=== PATIENT | female | born 1975 | race Caucasian/White ===

== ENCOUNTER → 2020-02-12 12:11 | Outpatient (CLI) | payer BC, SELFPAY ==
[2018-04-02 13:46] VITALS: BMI 39.6
[2020-02-12 15:13] LABS: Hematocrit 38.9 % (37-47); Hemoglobin 12.3 g/dL (12.0-15.0); Mean Corp Hgb Conc 31.6 g/dL (32-36); Mean Corpuscular Hgb 28.7 pg (27.0-32.0); Mean Corpuscular Volume 90.9 fL (81-99); Platelet Count 321 K/mm3 (150-450); RBC Distribution Width CV 12.6 % (11.6-14.6); RBC Distribution Width SD 41.7 fl (35.1-43.9); Red Blood Count 4.28 M/mm3 (4.2-5.4); White Blood Count 9.6 K/mm3 (4.4-11.0)
[2020-02-12 15:41] LABS: ALB/GLOB Ratio 0.9 RATIO (0.9-2.4); AST(SGOT) 19 U/L (15-37); Alanine Aminotransfer ALT/SGPT 32 U/L (13-56); Albumin, Serum 3.3 g/dL (3.2-5.0); Alkaline Phosphatase 62 U/L (45-117); Anion Gap 7 (5-15); BUN 19 mg/dL (7-18); BUN/Creat Ratio 18.8 RATIO (10-20); Calcium,Total 8.5 mg/dL (8.5-10.1); Chloride 104 mmol/L (98-107); Creatinine, Serum 1.01 mg/dL (0.55-1.02); EST Glomerular Filtration Rate 63 mL/min (>60); Est Glom Filt Rate - Afr Amer 76 mL/min (>60); Globulin 3.8 g/dL (2.2-4.2); Glucose 80 mg/dL (74-106); Potassium 4.1 mmol/L (3.5-5.1); Protein, Total 7.1 g/dL (6.4-8.2); Sodium Level 135 mmol/L (136-145)
== END ==
PROVIDERS: Referring Provider Family Medicine; Visit Provider Family Medicine
DX: Z51.81 Encounter for therapeutic drug level monitoring (principal); B18.2 Chronic viral hepatitis C
CPT/HCPCS: 36415; 80053; 85027

== ENCOUNTER → 2020-03-04 12:11 | Outpatient (CLI) | payer BC, SELFPAY ==
[2018-04-02 13:46] VITALS: BMI 39.6
--- NOTE | 2020-03-04 12:13 | BI_ITS ---
MAMMOGRAPHY - BILATERAL SCREENING REASON FOR EXAM: Female, 44 years old. Routine annual screening examination. PERTINENT HISTORY: Mother with breast cancer. Grandmother with breast cancer. TECHNIQUE: Digital bilateral breast saira (3D mammographic acquisition) in the CC and MLO projections. 2-D mediolateral oblique (MLO) and craniocaudad (CC) views of both breasts were obtained. CAD: Full Field Digital Mammography with Computer Added Detection was performed. COMPARISON: Comparison is made with prior examination of 09/11/2017. FINDINGS: Breast Composition: There are scattered areas of fibroglandular density. There are no dominant masses or suspicious calcifications. No other significant abnormalities are identified. There has been no significant change since the prior study. BI/SCRN MAMM (CAD)W/SAIRA BILAT IMPRESSION: Stable bilateral screening mammogram. Yearly follow-up mammogram recommended. (A) ASSESSMENT CATEGORY: BIRADS Category 1: Negative. A letter regarding these results will be sent to the patient by the facility within 30 days. Approximately 10% of breast cancers are not detected by mammography. A normal mammogram should not delay biopsy of a clinically suspicious abnormality. [id number] Electronically Signed: Donnie Todd MD at 13:16 EST , Service support ,
== END ==
LOC: OPBI 12:12
PROVIDERS: PCP Family Medicine; Referring Provider Obstetrics & Gynecology Gynecology; Visit Provider Obstetrics & Gynecology Gynecology
DX: Z12.31 Encounter for screening mammogram for malignant neoplasm of breast (principal)
CPT/HCPCS: 77063; 77067

== ENCOUNTER → 2023-02-02 | Outpatient (CLI) | payer OTHER, SELFPAY ==
--- NOTE | 2023-02-02 13:11 | BI_ITS ---
MAMMOGRAPHY - BILATERAL SCREENING 3-D TOMOSYNTHESIS REASON FOR EXAM: Female, 47 years old. Routine annual screening mammogram. PERTINENT HISTORY: Mother and grandmother with breast cancer, ages not identified. TECHNIQUE: 2-D mammograms and 3-D Tomosynthesis of the breast (s) were performed. CAD was performed. COMPARISON: March 04, 2020. FINDINGS: The breast composition is almost entirely fat. Stable benign calcifications and normal lymph nodes. No dominant masses, suspicious microcalcifications, asymmetries, skin thickening or nipple retraction. BI/SCRN MAMM (CAD)W/SAIRA BILAT IMPRESSION: No mammographic signs of malignancy. Routine yearly mammograms recommended. ASSESSMENT CATEGORY: BIRADS Category 2: Benign. A letter regarding these results will be sent to the patient by the facility within 30 days. FOLLOW UP RECOMMENDATION: Yearly follow up mammogram recommended. (A) Approximately 10% of breast cancers are not detected by mammography. A normal mammogram should not delay biopsy of a clinically suspicious abnormality. Electronically Signed: Jesse Alejandre MD at 15:26 EST ,
--- OUTSIDE RECORDS SUMMARY | 2023-02-02 13:38 | XMS RPT_ITS | CCD ---
Author Name Unknown Address [id number] [place] [address] Organization [facility] Care Team Providers Care Punch Press Setter Name Role Phone Unavailable Primary Care Provider UnavailJames Hall MD Unavailable PROVIDER, UNKNOWN Admitting Unavailable PROVIDER, UNKNOWN Attending Unavailable PROVIDER, UNKNOWN Admitting Unavailable PROVIDER, UNKNOWN Attending Unavailable PROVIDER, UNKNOWN Admitting Unavailable PROVIDER, UNKNOWN Attending Unavailable JAMES GALLEGOS Referring Unavailable PROVIDER, UNKNOWN Admitting Unavailable PROVIDER, UNKNOWN Attending Unavailable JAMES GALLEGOS Referring Unavailable PROVIDER, UNKNOWN Admitting Unavailable PROVIDER, UNKNOWN Attending Unavailable JAMES GALLEGOS Referring Unavailable PROVIDER, UNKNOWN Attending Unavailable JAMES GALLEGOS Referring Unavailable PROVIDER, UNKNOWN Admitting Unavailable PROVIDER, UNKNOWN Admitting Unavailable PROVIDER, UNKNOWN Attending Unavailable KENYA THORNE Referring Unavailable Kyung, MsJoss Maria G Edyta Attending Unav ailable Pending, Provider Primary Care Unavailable Unavailable Primary Care Provider UnavailWILY Mcconnell Attending Unavailable VERO DICKEY Attending Unavailable DUTTA, SCOT Referring Unavailable Lizet SAENZ MD, Frank A Primary Care Provider Eleni sofi Decker ASSURANCE SENIOR MANAGER INSURANCE, Frida Unavailable Helen Lyon Unavailable CEBUL III, WILLIAM A Primary Care Unavailable DUTTA, SCOT D Referring Unavailable CEBUL III, WILLIAM A Primary Care Unavailable DUTTA, SCOT D Referring Unavailable CEBUL III, WILLIAM A Primary Care Unavailable DUTTA, SCOT D Referring Unavailable CEBUL III, WILLIAM A Primary Care Unavailable DUTTA, SCOT D Referring Unavailable CEBUL III, WILLIAM A Primary Care Unavailable DUTTA, SCOT D Referring Unavailable Allergies Allergy Classification Reported Allergen(s) Allergy Type Date of Onset Reaction(s) Facility (20 sources) Amoxicillin; Translations: [AMOXICILLIN] Drug Allergy 1 Other, Other: See Comments [facility] (19 sources) Ciprofloxacin; Translations: [CIPROFLOXACIN HYDROCHLORIDE] Drug Allergy 8 Hives, Swelling [facility] Work Phone: (20 sources) cyclobenzaprine; Translations: [CYCLOBENZAPRINE] Drug Allergy 6 Other, Unknown [facility] (3 sources) buPROPion Drug Allergy 9 [facility] (3 sources) venlafaxine Drug Allergy 9 [facility] (1 source) Ciprofloxacin Drug Allergy [facility] (1 source) cyclobenzaprine Drug Allergy [facility] (1 source) Ciprofloxacin; Translations: [CIPROFLOXACIN] Drug Allergy 5 [facility] Other [employer] [facility] Medications Current Medications Medication Drug Class(es) Dates Sig (Normalized) Sig (Original) clindamycin 300 mg oral capsule (1 source) Lincosamide Antibacterial Start: 11-04-2022 Clindamycin 300 mg oral capsule clonazePAM 2 mg oral tablet (13 sources) Benzodiazepine Start: 04-01-2022 take 1 tablet by mouth in the morning clonazePAM (KlonoPIN) 2 MG tablet Take 2 mg by mouth in the morning and 2 mg in the evening. 0 04/01/2022 Active oxyCODONE hydrochloride 5 mg oral tablet (5 sources) Opioid Agonist Start: 05-05-2022 End: 05-15-2022 take 1 tablet by mouth every twelve hours as needed for pain oxyCODONE (Roxicodone) 5 MG immediate release tablet Take 1 Tablet by mouth every 12 hours as needed for Pain for up to 10 days. 0 05/05/2022 Active Completed/Discontinued Medications Medication Drug Class(es) Dates Sig (Normalized) Sig (Original) amphetamine aspartate 5 mg / amphetamine sulfate 5 mg / dextroamphetamine saccharate 5 mg / dextroamphetamine sulfate 5 mg oral tablet (13 sources) Central Nervous System Stimulant Start: 03-17-2022 End: 06-08-2022 amphetamine-dextr oamphetamine (Adderall) 20 MG tablet Ethinyl Estradiol / Ferrous fumarate / Norethindrone (5 sources) Estrogen Start: 10-21-2015 LO LOESTRIN FE 1 mg-10 mcg (24)/10 mcg (2) tab ibuprofen 800 mg oral tablet (18 sources) Nonsteroidal Anti-inflammatory Drug Start: 03-20-2022 End: 06-08-2022 take 1 tablet by mouth three times daily ibuprofen 800 MG tablet Take 800 mg by mouth 3 times daily. 0 03/20/2022 06/08/2022 Discontinued (Therapy completed) Problems Active Problems Problem Classification Problem Date Documented Date Episodic/Chronic Anxiety disorders (16 sources) Anxiety; Translations: [Anxiety disorder, unspecified] Onset: 06-05-2018 05-24-2022 Chronic Disorders of lipid metabolism (3 sources) Hyperlipidemia, unspecified; Translations: [Hyperlipidemia, unspecified] Onset: 05-24-2022 Chronic Genitourinary symptoms and ill-defined conditions (3 sources) Retention of urine; Translations: [Retention of urine, unspecified] Onset: 05-24-2022 05-24-2022 Episodic Mood disorders (17 sources) Depressive disorder; Translations: [Depression] Onset: 06-05-2018 05-24-2022 Chronic Other connective tissue disease (1 source) Abnormal posture; Translations: [Abnormal posture] Episodic Other connective tissue disease (6 sources) History of cervical spine fusion; Translations: [Arthrodesis status] Onset: 08-01-2022 Episodic Other connective tissue disease (2 sources) Bilateral hand weakness; Translations: [Other symptoms and signs involving the musculoskeletal system] Episodic Other nervous system disorders (8 sources) Cervical myelopathy; Translations: [Disease of spinal cord, unspecified] Onset: 05-05-2022 Chronic Other nervous system disorders (3 sources) Disease of spinal cord, unspecified; Translations: [Disease of spinal cord, unspecified] Onset: 05-05-2022 Chronic Other nervous system disorders (2 sources) Numbness of hand; Translations: [Anesthesia of skin] Episodic Other nutritional; endocrine; and metabolic disorders (5 sources) Body mass index 30+ - obesity; Translations: [Body mass index (BMI) 39.0-39.9, adult] Onset: 05-24-2022 Chronic Other upper respiratory disease (1 source) Pain in throat; Translations: [Pain in throat] Onset: 11-04-2022 Episodic Other upper respiratory infections (2 sources) Streptococcal pharyngitis; Translations: [Streptococcal pharyngitis] Onset: 11-04-2022 Episodic Residual codes; unclassified (13 sources) Insomnia; Translations: [Insomnia, unspecified] Onset: 02-02-2014 05-24-2022 Episodic Spondylosis; intervertebral disc disorders; other back problems (19 sources) Cervical spondylosis; Translations: [Other spondylosis with myelopathy, cervical region] Onset: 07-09-2007 07-09-2007 Chronic Unclassified (1 source) Physical Therapy Onset: 08-16-2022 Past or Other Problems Problem Classification Problem Date Documented Date Episodic/Chronic Administrative/social admission (7 sources) Other reduced mobility; Translations: [Other specified conditions influencing health status] Onset: 08-01-2022 Episodic Calculus of urinary tract (8 sources) Kidney stone; Translations: [Calculus of kidney] Onset: 02-02-2014 05-24-2022 Episodic Hepatitis (8 sources) Viral hepatitis C; Translations: [Unspecified viral hepatitis C without hepatic coma] Onset: 02-18-2014 05-24-2022 Episodic Malaise and fatigue (7 sources) Asthenia; Translations: [Weakness] Onset: 08-01-2022 Episodic Other connective tissue disease (1 source) Other symptoms and signs involving the musculoskeletal system; Translations: [Weakness of both hands] Onset: 08-16-2022 Episodic Other connective tissue disease (1 source) Arthrodesis status; Translations: [S/P cervical spinal fusion] Onset: 08-01-2022 Episodic Other nervous system disorders (1 source) Anesthesia of skin; Translations: [Bilateral hand numbness] Onset: 08-16-2022 Episodic Spondylosis; intervertebral disc disorders; other back problems (20 sources) Cervical radiculitis; Translations: [Radiculopathy, cervical region] Onset: 04-10-2016 Episodic Results Test Name Value Interpretation Reference Range Facil it Vital Signs Date Time Vital Sign Value Performing Clinician Facility 11-04-2022 15:21-0400 Body temperature 97.7 [degF] Frida Decker ASSURANCE SENIOR MANAGER INSURANCE [facility] 11-04-2022 15:21-0400 Body weight 80.3 kg Frida Pollack ASSURANCE SENIOR MANAGER INSURANCE [facility] 11-04-2022 15:21-0400 Diastolic blood pressure 85 mm[Hg] Frida Pollack ASSURANCE SENIOR MANAGER INSURANCE [facility] 11-04-2022 15:21-0400 Heart rate 91 /min Frida Pollack ASSURANCE SENIOR MANAGER INSURANCE [facility] 11-04-2022 15:21-0400 Respiratory rate 18 /min Frida Pollack ASSURANCE SENIOR MANAGER INSURANCE [facility] 11-04-2022 15:21-0400 SaO2% (BldA) [Mass fraction] 98 % Frida Pollack ASSURANCE SENIOR MANAGER INSURANCE [facility] 11-04-2022 15:21-0400 Systolic blood pressure 124 mm[Hg] Frida Pollack ASSURANCE SENIOR MANAGER INSURANCE [facility] 06-08-2022 08:02-0400 Body height 147.3 cm Vero Rojasl DO Work Phone: [facility] 06-08-2022 08:02-0400 Body mass index (BMI) [Ratio] 39.29 kg/m2 Vero Dickey DO Work Phone: [facility] 06-08-2022 08:02-0400 Body weight 85.28 kg Vero Dickey DO Work Phone: [facility] 05-30-2022 09:04-0400 Body height 147.3 cm Wily Elizabeth MD Work Phone: [facility] [employer] 05-30-2022 09:04-0400 Body mass index (BMI) [Ratio] 38.67 kg/m2 Wily Elizabeth MD Work Phone: [facility] 05-30-2022 09:04-0400 Body weight 83.92 kg Wily Elizabeth MD Work Phone: [facility] 05-30-2022 09:04-0400 Diastolic blood pressure 80 mm[Hg] Wily Elizabeth MD Work Phone: [facility] 05-30-2022 09:04-0400 Heart rate 105 /min Wily Elizabeth MD Work Phone: [facility] 05-30-2022 09:04-0400 Systolic blood pressure 111 mm[Hg] Wily Elizabeth MD Work Phone: [facility] 05-05-2022 09:35-0400 Body temperature 98.1 [degF] [facility] 05-05-2022 09:35-0400 Diastolic blood pressure 78 mm[Hg] [facility] 05-05-2022 09:35-0400 Heart rate 90 /min James [facility] 05-05-2022 09:35-0400 SaO2% (BldA) [Mass fraction] 99 % James [facility]legos MD [facility] 05-05-2022 09:35-0400 Systolic blood pressure 126 mm[Hg] James [facility]leg[facility] 04-07-2022 08:11-0500 Body height 147.3 cm James Gallegos MD [facility] 04-07-2022 08:11-0500 Body mass index (BMI) [Ratio] 39.71 kg/m2 James Gallegos MD Work Phone: [facility] [employer] 04-07-2022 08:11-0500 Body temperature 97.81 [degF] James [facility]leg[facility] 04-07-2022 08:11-0500 Body weight 86.18 kg James Gallegos MD [facility] 04-07-2022 08:11-0500 Diastolic blood pressure 76 mm[Hg] James [facility]legos MD [facility] 04-07-2022 08:11-0500 Heart rate 88 /min James Gallegos MD [facility] 04-07-2022 08:11-0500 SaO2% (BldA) [Mass fraction] 97 % James Gallegos MD [facility] 04-07-2022 08:11-0500 Systolic blood pressure 119 mm[Hg] James Gallegos MD Work Phone: [facility] Encounters Encounter Date Encounter Type Care Provider Facility Start: 11-04-2022 Frida grijalva ASSURANCE SENIOR MANAGER INSURANCE [facility] Start: 08-18-2022 End: 08-18-2022 ambulatory WILL[facility] CEBUL [facility] Start: 08-16-2022 End: 08-16-2022 ambulatory WILLIAM A CEBUL III [facility] Start: 08-16-2022 End: 08-16-2022 ambulatory Dick Yuliana SUPERVISOR GROVE Work Phone: [facility] Procedures Date Procedure Procedure Detail Performing Clinician Start: 04-24-2022 Mri spinal canal cer vical w/o contrast matrl James Gallegos MD Work Phone: Start: 03-04-2020 Mammography Kyleigh collier PT Work Phone: Plan of Treatment Date Care Activity Detail Author Start: 08-29-2027 DTaP/Tdap/Td Vaccines (2 - Td or Tdap) DTaP/Tdap/Td Vaccines (2 - Td or Tdap) [facility] Start: 08-29-2027 Tetanus vaccination Tetanus (Td or Tdap) Booster [facility] Start: 08-29-2027 Urine microalbumin profile DTAP,TDAP,TD (2 - Td or Tdap) [facility] Start: 2024 Shingles (RZV) Vaccine (1 of 2) Shingles (RZV) Vaccine (1 of 2) [facility] Start: 2024 Zoster Vaccines (1 of 2) Zoster Vaccines (1 of 2) [facility] Start: 05-06-2023 DIABETES SCREEN DIABETES SCREEN [facility] Start: 10-06-2022 Influenza vaccination [facility] Start: 08-31-2022 End: 08-31-2022 ACDF, ANTERIOR/POSTERIOR CERVICAL FLIP ACDF, ANTERIOR/POSTERIOR CERVICAL FLIP Routine scheduled Cervical spondylosis with myelopathy Cervical radiculitis Cervical myelopathy (HCC) 08/31/2022 7:30 AM EDT [facility] Start: 08-31-2022 End: 08-31-2022 Admission to same day surgery center 08/31/2022 Surgery General Surgery Kenya Thorne MD [address] [place] [address] ACDF, ANTERIOR/POSTERIOR CERVICAL FLIP, 3/4 acdf, flip laminoplasty 3-7 [facility] Main OR Immunizations Immunization Date Immunization Notes Care Provider Fa cility 08-28-2017 tetanus toxoid, redu ebonie diphtheria toxoid, and acellular pertussis vaccine, adsorbed James Gallegos MD Work Phone: [facility] 05-12-2014 hepatitis A and hepatitis B vaccine James Gallegos MD Work Phone: [facility] 05-12-2014 hepatitis B vaccine, unspecified formulation Kyleigh Keith PT Work Phone: [facility] Payers Date Payer Category Payer Unknown [id number] 2013 Unknown [id number] 1974 Unknown [id number] 2.16. [id number] 1974 Unknown [id number] 2.16. [id number] 1974 Unknown [id number] 2.16. [id number] 1974 Unknown [id number] 2.16. [id number] 1974 Unknown [id number] 2.16. [id number] 1974 Unknown [id number] 2.16. [id number] 1974 Unknown [id number] 2.16. [id number] 1974 Unknown [id number] 2.16. [id number] Unknown [id number] Social History Date Type Detail Facility Start: 04-07-2022 End: 05-30-2022 Tobacco smoking status [facility] Start: 11-10-2015 End: 04-07-2022 Tobacco use and exposure Smokeless tobacco non-user [facility] Start: 04-07-2022 End: 06-08-2022 Alcohol intake Current drinker of alcohol (finding) [facility] Start: 04-07-2022 History SDOH [facility] Start: 1975 [facility]igned [facility] Start: 05-30-2022 [facility] Start: 05-20-2022 End: 05-30-2022 Exposure to SARS-CoV-2 (event) Not sure [facility] Start: 11-10-2015 Tobacco smoking stat us NHIS Ex-smoker [facility] End: 02-05-2011 History of tobacco use Current smoker [facility] End: 02-05-2011 History of tobacco use Cigarette Smoker [facility] Start: 11-10-2015 End: 08-01-2022 Cigarettes smoked current (pack per day) - Reported 0.5 [facility] Start: 05-05-2020 Alcohol intake Current non-dr bush regenerator of alcohol (finding) [facility] Start: 05-05-2020 End: 08-01-2022 Tobacco use panel [facility] Adult Depression Screening Assessment 2 [facility] Start: 06-18-2019 Gender identity Identifies as female gender (finding) [facility] Start: 06-18-2019 Sexual orientation Heterosexual (fin ding) [facility] Clinical Notes 08-06-2020 to 11-14-2022 Dick Bridges, KULDEEP - 08/16/2022 9:55 AM Valeri Maya OTR/Enrike - 08/16/2022 9:54 AM Marvin Ramírez OTR/Enrike - 08/01/2022 10:24 AM Shayne Andrade PT - 08/01/2022 9:16 AM EDT Note Date & Type Note Facility 11-14-2022 Note HNO ID: [id number] Author: Valeri Ramírez OTR/Enrike Service: ? Author Type: Occupational Therapist Type: Progress Notes Filed: 11/14/2022 8:17 AM Note Text: Summary: OT discharge 11/14/2022 REHABILITATION AND SPORTS THERAPY OCCUPATIONAL THERAPY DISCONTINUANCE OF CARE Plan of Care Period: Start of Care Date: 08/01/22 Last Visit Date: 08/16/2022 Therapy Program: The following is a summary of the interventions provided for this episode of care; Therapeutic exercise, Therapeutic activities, and Neuromuscular re-education Assessment: The following is the goal status: Goals for Episode of Care created on 08/01/22 through 10/24/22 Progress note 08/31 Patient will complete HEP at [place] level. Patient will decrease pain rating to no more than 5/10 to meet minimal clinical important difference for numeric pain rating scale. Patient will demonstrate increase in Bilateral shoulder strength to 4/5 during manual muscle testing in order to improve function for basic self-care tasks, light functional tasks, and work tasks. Patient will demonstrate improved neuromuscular coordination as evidenced by improved 9-hole peg test by completion of task. improve function for basic self-care tasks and meal prep tasks. Patient will report improved efficiency with activity tolerance throughout the day in order to complete morning ADLS without rest breaks.. Patient will independently demonstrate sensory re-education/desensitization techniques with his/her home program. Patient Goals: resume normal funciton of strength and endurance Based on the most recent progress report, patient was progressing as expected toward functional goals based on home exercise program compliance and appointment compliance. Reason for Discontinuation of Care: Patient has not returned to therapy or scheduled additional follow-up appointments. Valeri Ramírez OTR/Enrike [facility] 09-29-2022 Note HNO ID: [id number] Author: Abhi Alvarez PT Service: ? Author Type: Physical Therapist Type: Progress Notes Filed: 09/29/2022 10:28 AM Note Text: 09/29/2022 [facility] REHABILITATION AND SPORTS THERAPY PHYSICAL THERAPY DISCONTINUANCE OF CARE Plan of Care Period: Start of Care Date: 08/01/22 Last Visit Date: 08/18/2022 Therapy Program: The following is a summary of the interventions provided for this episode of care; Therapeutic exercise, Neuromuscular re-education, and Manual therapy Assessment: Based on most recent visit, patient was progressing as expected toward functional goals based on pain levels. Unable to formally assess goal achievement, as patient has not returned to therapy or scheduled additional follow-up appointments. Reason for Discontinuation of Care: Patient has not returned to therapy or scheduled additional follow-up appointments. Abhi Alvarez PT [facility] 08-18-2022 Note HNO ID: [id number] Author: Abhi Alvarez PT Service: ? Author Type: Physical Therapist Type: Progress Notes Filed: 08/18/2022 3:06 PM Note Text: Episode Visit Count: 3 Therapist That Will Accept/Oversee The Plan Of Care: Ra Andrade Start of Care Date: 08/01/22 Onset Date: 08/01/20 (~ 2 years ago) Patient Identified by Name and Date of : Yes REHABILITATION AND SPORTS THERAPY PHYSICAL THERAPY TREATMENT NOTE ASSESSMENT: Tierra Mcgovern tolerated the session with fatigue. She demonstrated difficulty with strengthening. The patient will continue to benefit from ongoing skilled physical therapy to progress toward set goals. PLAN FOR NEXT VISIT: continue to progress pt lack of strength and see if she ws able to get a heel lift and assess that. SUBJECTIVE: Patient Reason for Visit: Continued LBP both sides of low back. Pain in neck. Pt contributes pain to being later in the week. I am always worse later in the week Pain: Pain Pain Level: 6 Pain Location: Neck - Left, Shoulder - Left Additional Pain Information : Location 2 Pain Level 2: 6 Pain Location 2: Low Back/Lumbar Spine- Midline OBJECTIVE MEASURES WITH LEVEL OF FUNCTION: TREATMENT: Therapeutic Exercise: 1: supine hor abduction pink 10x2 2: supine leg press 3: supine head press 4: *prone head and chest lift 5x3 5: retested cervical mobilty after every exercise and pt had most cervical rotation after prone exercise. Skilled Intervention: Patient was educated in proper exercise technique and purpose for exercises. Reviewed and educated patient on additions/changes for home exercise program as above (*). Therapeutic Activity: 1: assessed pt and found LLE to be shorter than RLE. Lift was placed in L shoe and pt had decreased pain with walking in her low back. Then had pt perform TE then the Leg length tested normal. Skilled Intervention: Education on leg length discrepancy and how it can change with exercise. Billing Therapeutic Exercise Treatment Minutes: 30 Therapeutic Activity Treatment Minutes: 10 Total Treatment Time Minutes (timed/untimed): 40 Abhi Alvarez, PT [facility] 08-16-2022 Note HNO ID: [id number] Author: Dick Bridges PTA Service: ? Author Type: Machine Clothing Man Type: Progress Notes Filed: 08/16/2022 9:57 AM Note Text: Episode Visit Count: 2 Therapist That Will Accept/Oversee The Plan Of Care: Ra Andrade Start of Care Date: 08/01/22 Onset Date: 08/01/20 (~ 2 years ago) Patient Identified by Name and Date of : Yes REHABILITATION AND SPORTS THERAPY PHYSICAL THERAPY TREATMENT NOTE ASSESSMENT: Tierra Mcgovern tolerated the session with increased symptoms low back and decreased symptoms right heel cord. She demonstrated difficulty with engaging abdominals with transfers and use of glut medius with straight leg raise in side lying . The patient will continue to benefit from ongoing skilled physical therapy to progress toward set goals. PLAN FOR NEXT VISIT: address neural tension rightle as needed , progress strengthen and stability in core , right ankle and bilateral ue, also address supine to sit and sit to stand transfers with good body mechanics SUBJECTIVE: Patient Reason for Visit: patient reports difficulty with low back pain , tightness in right heel cord, and left neck and shoulder pain Pain: Pain Pain Level: 5 Pain Location: Neck - Left, Shoulder - Left Description: Sore, Sharp Additional Pain Information : Location 2 Pain Location 2: Heel - Right Description 2: Aching Frequency 2: Intermittent, Walking Post Treatment Pain Post Treatment Pain Level: 4 Post Treatment Pain Location: Neck - Left, Shoulder - Left Post Treatment Pain Description: Sore Post Treatment Pain Score 2: 2/10 Post Treatment Pain Location 2: Heel - Right Post Treatment Pain Description 2: Aching OBJECTIVE MEASURES WITH LEVEL OF FUNCTION: TREATMENT: Therapeutic Exercise: 1: nu step seat 4 ue/le level 2 8 min, monitored response to use of nustep 2: slant board 1 min 3: supine manual right heel cord stretch 20 seconds x 3 4: supine neural glide right le with slr and ankle pump , with slr with right hip ER/IR 15 x 3 each 5: *long sitting EOB with right heel on foot stool , self neural glides with ankle pump right 15 x 3 6: left sidelling right slr 5 x increased back pain, also patient unable to perform exercise correctly 7: hooklying decompression breathing 5 x 2 , overuse of lumbar paraspinals , 8: *hooklying clamshells blue tb 5 x 2 left , 5 x 2 right 9: *decompression leg lengthener right /left 5 seconds x 5 , leg press 5 second hold x 5 , right /left , bilateral combination leg lengthener /leg press 10: supine thoracic lift with scapular retraction 5 x increased low back pain 11: educated patient on proper body mechanics with transfers Skilled Intervention: Patient was educated in proper exercise technique and purpose for exercises. Reviewed and educated patient on additions/changes for home exercise program as above (*). Skilled judgment was provided in selection of appropriate interventions. Provided written instruction for home exercise program to facilitate proper performance and compliance. Patient education as noted. Billing Therapeutic Exercise Treatment Minutes: 45 Total Treatment Time Minutes (timed/untimed): 45 Dick Bridges PTA [facility] 08-16-2022 Note HNO ID: [id number] Author: Valeri Ramírez, OTR/L Service: ? Author Type: Occupational Therapist Type: Progress Notes Filed: 08/16/2022 10:03 AM Note Text: Episode Visit Count: 2 Therapist That Will Accept/Oversee The Plan Of Care: Valeri Ramírez Start of Care Date: 08/01/22 Onset Date: 06/20/22 Patient Identified by Name and Date of : Yes REHABILITATION AND SPORTS THERAPY OCCUPATIONAL THERAPY TREATMENT NOTE ASSESSMENT: Tierra Mcgovern tolerated the session with fatigue. She demonstrated difficulty with sensation, activity tolerance, strength and dexterity. The patient will continue to benefit from ongoing skilled occupational therapy to progress toward set goals. PLAN FOR NEXT VISIT: AROM, fine motor skills, proximal stabilization SUBJECTIVE: OT follow up tx visit- presents left from PT: pt reports much pain, weakness and fatigue; she is working 6 hours per day 5 days per week; yesterday she did 7 hours. 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 Reviewed and educated patient on additions/changes for home exercise program for shoulder flexion and retraction. Correct performance of therapeutic exercises was facilitated with verbal cuing. Therapeutic Activity: 1: 9 hole peg test to compare (B) fine motor skills 2: in-hand manipulation skills using various items such as small square blocks, coins, wooden beads - pt completing Skilled Intervention: Educated on proper/safe technique for activities performed today. Assisted proper completion of task with verbal and visual cueing and correction of abnormal movement patterns. Neuromuscular Re-Education: 1: sensory re-integration w/ use of sensory bins- R side first for recognition ; completing tasks at same time for simultaneous stimuli; disucssion of sensory re-integration strategies for home; Skilled Intervention: Education in proprioceptive/kinesthetic awareness during reaching and fine motor tasks. Reviewed and educated patient on additions/changes for home program sensory re-integration Correct performance of home program was facilitated with verbal cueing. Billing Therapeutic Exercise Treatment Minutes: 10 Therapeutic Activity Treatment Minutes: 10 Neuromuscular Re-Education Treatment Minutes: 10 Total Treatment Time Minutes (timed/untimed): 30 Valeri Ramírez OTR/Enrike [facility] 08-16-2022 History of Present illness Narrative Episode Visit Count: 2 Therapist That Will Accept/Oversee The Plan Of Care: Ra Andrade Start of Care Date: 08/01/22 Onset Date: 08/01/20 (~ 2 years ago) Patient Identified by Name and Date of : Yes REHABILITATION AND SPORTS THERAPY PHYSICAL THERAPY TREATMENT NOTE ASSESSMENT: Tierra Mcgovern tolerated the session with increased symptoms low back and decreased symptoms right heel cord. She demonstrated difficulty with engaging abdominals with transfers and use of glut medius with straight leg raise in side lying . The patient will continue to benefit from ongoing skilled physical therapy to progress toward set goals. PLAN FOR NEXT VISIT: address neural tension rightle as needed , progress strengthen and stability in core , right ankle and bilateral ue, also address supine to sit and sit to stand transfers with good body mechanics SUBJECTIVE: Patient Reason for Visit: patient reports difficulty with low back pain , tightness in right heel cord, and left neck and shoulder pain Pain: Pain Pain Level: 5 Pain Location: Neck - Left, Shoulder - Left Description: Sore, Sharp Additional Pain Information : Location 2 Pain Location 2: Heel - Right Description 2: Aching Frequency 2: Intermittent, Walking Post Treatment Pain Post Treatment Pain Level: 4 Post Treatment Pain Location: Neck - Left, Shoulder - Left Post Treatment Pain Description: Sore Post Treatment Pain Score 2: 2/10 Post Treatment Pain Location 2: Heel - Right Post Treatment Pain Description 2: Aching OBJECTIVE MEASURES WITH LEVEL OF FUNCTION: TREATMENT: Therapeutic Exercise: 1: nu step seat 4 ue/le level 2 8 min, monitored response to use of nustep 2: slant board 1 min 3: supine manual right heel cord stretch 20 seconds x 3 4: supine neural glide right le with slr and ankle pump , with slr with right hip ER/IR 15 x 3 each 5: *long sitting EOB with right heel on foot stool , self neural glides with ankle pump right 15 x 3 6: left sidelling right slr 5 x increased back pain, also patient unable to perform exercise correctly 7: hooklying decompression breathing 5 x 2 , overuse of lumbar paraspinals , 8: *hooklying clamshells blue tb 5 x 2 left , 5 x 2 right 9: *decompression leg lengthener right /left 5 seconds x 5 , leg press 5 second hold x 5 , right /left , bilateral combination leg lengthener /leg press 10: supine thoracic lift with scapular retraction 5 x increased low back pain 11: educated patient on proper body mechanics with transfers Skilled Intervention: Patient was educated in proper exercise technique and purpose for exercises. Reviewed and educated patient on additions/changes for home exercise program as above (*). Skilled judgment was provided in selection of appropriate interventions. Provided written instruction for home exercise program to facilitate proper performance and compliance. Patient education as noted. Billing Therapeutic Exercise Treatment Minutes: 45 Total Treatment Time Minutes (timed/untimed): 45 Dick Bridges PTA documented in this encounter [facility] 08-16-2022 History of Present illness Narrative Episode Visit Count: 2 Therapist That Will Accept/Oversee The Plan Of Care: Valeri Ramírez Start of Care Date: 08/01/22 Onset Date: 06/20/22 Patient Identified by Name and Date of : Yes REHABILITATION AND SPORTS THERAPY OCCUPATIONAL THERAPY TREATMENT NOTE ASSESSMENT: Tierra Mcgovern tolerated the session with fatigue. She demonstrated difficulty with sensation, activity tolerance, strength and dexterity. The patient will continue to benefit from ongoing skilled occupational therapy to progress toward set goals. PLAN FOR NEXT VISIT: AROM, fine motor skills, proximal stabilization SUBJECTIVE: OT follow up tx visit- presents left from PT: pt reports much pain, weakness and fatigue; she is working 6 hours per day 5 days per week; yesterday she did 7 hours. 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 Reviewed and educated patient on additions/changes for home exercise program for shoulder flexion and retraction. Correct performance of therapeutic exercises was facilitated with verbal cuing. Therapeutic Activity: 1: 9 hole peg test to compare (B) fine motor skills 2: in-hand manipulation skills using various items such as small square blocks, coins, wooden beads - pt completing Skilled Intervention: Educated on proper/safe technique for activities performed today. Assisted proper completion of task with verbal and visual cueing and correction of abnormal movement patterns. Neuromuscular Re-Education: 1: sensory re-integration w/ use of sensory bins- R side first for recognition ; completing tasks at same time for simultaneous stimuli; disucssion of sensory re-integration strategies for home; Skilled Intervention: Education in proprioceptive/kinesthetic awareness during reaching and fine motor tasks. Reviewed and educated patient on additions/changes for home program sensory re-integration Correct performance of home program was facilitated with verbal cueing. Billing Therapeutic Exercise Treatment Minutes: 10 Therapeutic Activity Treatment Minutes: 10 Neuromuscular Re-Education Treatment Minutes: 10 Total Treatment Time Minutes (timed/untimed): 30 MANAS Del Valle documented in this encounter [facility] 08-01-2022 Note HNO ID: [id number] Author: MANAS Del Valle Service: ? Author Type: Occupational Therapist Type: Progress Notes Filed: 08/01/2022 10:36 AM Note Text: Summary: OT evaluation Episode Visit Count: 1 Therapist That Will Accept/Oversee The Plan Of Care: Valeri Ramírez Start of Care Date: 08/01/22 Onset Date: 06/20/22 Patient Identified by Name and Date of : Yes [facility] REHABILITATION AND SPORTS THERAPY OCCUPATIONAL THERAPY EVALUATION PLAN OF CARE: Assessment: Tierra Mcgovern presents with diagnosis of s/p cervical fusion ~6 weeks post op with chief complaint of decreased strength, fatigue, numbness and general inability to complete daily living tasks/works tasks consistently that interferes with physical activities, heavy exertion, lifting, bending, recreational activities, cleaning, cooking, dressing, use hand with arm at shoulder level, reaching overhead, weight bearing, gripping, pinching, twisting, pulling, pushing . She presents with impairments in ADL's, coordination, overall function, range of motion, sensation, and symptom management. PROMIS? (Patient-Reported Outcomes Measurement Information System) scores were reviewed and all domains identified as a rehabilitation concern. Prognosis for therapy is Good due to: current objective clinical presentation, good overall health status . She will benefit from skilled therapy services to meet the goals established for this plan of care as noted below. Goals for Episode of Care created on 08/01/22 through 10/24/22 Patient will complete HEP at [place] level. Patient will decrease pain rating to no more than 5/10 to meet minimal clinical important difference for numeric pain rating scale. Patient will demonstrate increase in Bilateral shoulder strength to 4/5 during manual muscle testing in order to improve function for basic self-care tasks, light functional tasks, and work tasks. Patient will demonstrate improved neuromuscular coordination as evidenced by improved 9-hole peg test by completion of task. improve function for basic self-care tasks and meal prep tasks. Patient will report improved efficiency with activity tolerance throughout the day in order to complete morning ADLS without rest breaks.. Patient will independently demonstrate sensory re-education/desensitization techniques with his/her home program. Patient Goals: resume normal funciton of strength and endurance Planned Interventions, Frequency, and Duration: Current Frequency: 1x/week (1-2x/week) Duration: 12 weeks Total Number of Visits Planned: 16 Planned Treatment Interventions: Therapeutic exercise (84219), Therapeutic activities (34021), Manual therapy (32658), Neuromuscular re-education (58438), Self-fpc management (60745) PLAN FOR NEXT VISIT: AROM, fine motor skills, proximal stabilization Patient demonstrates good understanding of plan of care and treatment. The above goals and plan of care were discussed and agreed upon by patient/family. 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 ; she feels like its very difficult to do much and have strength/endurance to keep up Functional Limitations: physical activities, heavy exertion, lifting, bending, recreational activities, cleaning, cooking, dressing, use hand with arm at shoulder level, reaching overhead, weight bearing, gripping, pinching, twisting, pulling, pushing Prior Level of Function: Independent without limitations Patient Goals: resume normal funciton of strength and endurance Intake Information: (pt to bring order / call center receptionist to call) Previous Treatment: Pain meds Relevant History Right or Left Handed: Right 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 5 points is clinically meaningfully difference Percentiles provide an indication of how the patient's score ranks in rel (more content not included)... [facility] 08-01-2022 Note HNO ID: [id number] Author: Dia Andrade PT Service: ? Author Type: Physical Therapist Type: Progress Notes Filed: 08/01/2022 9:29 AM Note Text: Episode Visit Count: 1 Therapist That Will Accept/Oversee The Plan Of Care: Ra Andrade Start of Care Date: 08/01/22 Onset Date: 08/01/20 (~ 2 years ago) Patient Identified by Name and Date of : Yes Rehab Precautions: Spine Precaution/Activity Restriction Comments: brace with sleeping and work tasks ; no BLT; no lifting >10#; Current Surgical Procedure : ACDF C3-7 (by Dr Dutta at [facility]) Current Surgical Procedure Date: 06/07/22 Mechanism of Injury: Insidious Onset REHABILITATION AND SPORTS THERAPY PHYSICAL THERAPY EVALUATION PLAN OF CARE: Assessment: Tierra Mcgovern presents 6 weeks s/p cervical fusion with chief complaint and post-op deficits of pain AND paresthesias (hands), weakness and fatigue that interferes with walking in the community, stair negotiation, heavy exertion, lifting, physical activities, recreational activities, working, sleeping, dressing, gripping . She presents with impairments in ADL's, balance, flexibility, gait, independence in exercise, overall function, range of motion, sensation, strength, and symptom management. PROMIS? (Patient-Reported Outcomes Measurement Information System) scores were reviewed and physical function domain and self efficacy domain identified as a rehabilitation concern. Prognosis for therapy is Good due to: good overall health status Fair due to: clinical presentation, chronic nature of impairments, limited tolerance to activity . She will benefit from skilled therapy services to meet the goals established for this plan of care as noted below. Pt presents with significant weakness AND fatigue. She would benefit from post-op f/u with PCP which I discussed AND recommended (she currently doesn't have one) and possible referral to trout farmer. She may also benefit from neurology consult pending progress in therapy with strength gains (pt referred to PT AND OT). Goals for Episode of Care: created on 08/01/22 through 10/30/22 [place] in home exercise program. Patient will demonstrate increase in UE AND LE strength to 4+/5 during manual muscle testing in order to improve function for basic self-care tasks, home management tasks, prior functional tasks, and work tasks. Normal gait. Reciprocal stair negotiation. Patient will increase balance to 20 seconds for single limb stance on RLE and LLE, also improve dynamic balance with tandem stance/walk. Patient will decrease pain rating by 2 points to meet minimal clinical important difference for numeric pain rating scale. Restore pain free cervical ROM to wfl to allow for improved ADLs. Patient will increase flexibility of B LE (HS) to WNL to improve ability to maintain proper posture, improve mechanics, and decrease pain. Patient Goals: move better with less pain, better strength, less numbness Planned Interventions, Frequency, and Duration: Current Frequency: 2x/week Duration: 12 weeks Total Number of Visits Planned: 20 Planned Treatment Interventions: Therapeutic exercise (17238), Neuromuscular re-education (34196), Manual therapy (37550), Therapeutic activities (11741), Self-fpc management (45662), Gait Training (11890), Patient/Family/Caregiver Education, Body Mechanics Training, Functional training, General Conditioning PLAN FOR NEXT VISIT: address UE/LE strength, endurance, gait AND balance Patient demonstrates good understanding of plan of care and treatment. The above goals and plan of care were discussed and agreed upon by patient/family. SUBJECTIVE: Tierra Mcgovern is a 46 year old female seen today for PT eval for post-op rehab s/p neck fusion surgery. pt limited by neck AND shoulder pain, B UE/hand numbness, general weakness AND deconditioning, reports frequent fatigue AND exhaustion. initially wore a soft collar 28/08 after surgery now just wears for work AND sleep. pt also reports LBP AND intermittent sciatica from a slipped disc, says she may need surgery for that also Patient Goals: move better with less pain, better strength, less numbness Functional Limitations: walking in the community, stair negotiation, heavy exertion, lifting, physical activities, recreational activities, working, sleeping, dressing, gripping Prior Level of Function: Independent without limitations Relevant History Past Relevant Medical Conditions: Anxiety, Depression, Hepatitis/Liver Disease Past Relevant Surgical Conditions: Spine fusion - Cervical Spine Fusion - Cervical Comments: previous neck fusion at [place] [id number] Right or Left Handed: Right 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 [facility] 08-01-2022 History of Present illness Narrative Summary: OT evaluation Episode Visit Count: 1 Therapist That Will Accept/Oversee The Plan Of Care: Valeri Ramírez Start of Care Date: 08/01/22 Onset Date: 06/20/22 Patient Identified by Name and Date of : Yes [facility] REHABILITATION AND SPORTS THERAPY OCCUPATIONAL THERAPY EVALUATION PLAN OF CARE: Assessment: Tierra Mcgovern presents with diagnosis of s/p cervical fusion ~6 weeks post op with chief complaint of decreased strength, fatigue, numbness and general inability to complete daily living tasks/works tasks consistently that interferes with physical activities, heavy exertion, lifting, bending, recreational activities, cleaning, cooking, dressing, use hand with arm at shoulder level, reaching overhead, weight bearing, gripping, pinching, twisting, pulling, pushing . She presents with impairments in ADL's, coordination, overall function, range of motion, sensation, and symptom management. PROMIS (Patient-Reported Outcomes Measurement Information System) scores were reviewed and all domains identified as a rehabilitation concern. Prognosis for therapy is Good due to: current objective clinical presentation, good overall health status . She will benefit from skilled therapy services to meet the goals established for this plan of care as noted below. Goals for Episode of Care created on 08/01/22 through 10/24/22 Patient will complete HEP at [place] level. Patient will decrease pain rating to no more than 5/10 to meet minimal clinical important difference for numeric pain rating scale. Patient will demonstrate increase in Bilateral shoulder strength to 4/5 during manual muscle testing in order to improve function for basic self-care tasks, light functional tasks, and work tasks. Patient will demonstrate improved neuromuscular coordination as evidenced by improved 9-hole peg test by completion of task. improve function for basic self-care tasks and meal prep tasks. Patient will report improved efficiency with activity tolerance throughout the day in order to complete morning ADLS without rest breaks.. Patient will independently demonstrate sensory re-education/desensitization techniques with his/her home program. Patient Goals: resume normal funciton of strength and endurance Planned Interventions, Frequency, and Duration: Current Frequency: 1x/week (1-2x/week) Duration: 12 weeks Total Number of Visits Planned: 16 Planned Treatment Interventions: Therapeutic exercise (85987), Therapeutic activities (12632), Manual therapy (80803), Neuromuscular re-education (08448), Self-fpc management (23065) PLAN FOR NEXT VISIT: AROM, fine motor skills, proximal stabilization Patient demonstrates good understanding of plan of care and treatment. The above goals and plan of care were discussed and agreed upon by patient/family. 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 ; she feels like its very difficult to do much and have strength/endurance to keep up Functional Limitations: physical activities, heavy exertion, lifting, bending, recreational activities, cleaning, cooking, dressing, use hand with arm at shoulder level, reaching overhead, weight bearing, gripping, pinching, twisting, pulling, pushing Prior Level of Function: Independent without limitations Patient Goals: resume normal funciton of strength and endurance Intake Information: (pt to bring order / call center receptionist to call) Previous Treatment: Pain meds Relevant History Right or Left Handed: Right 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 5 points is clinically meaningfully difference Percentiles provide an indication of how the patient's score ranks in relation to the general population. Higher percentile rankings indicate better function/quality of life. 50th percentile is the average of the general population and indicates half of respondents had a worse score. OBJECTIVE MEASURES WITH LEVEL OF FUNCTION: Hand Shoulder AROM: Bilateral Limitation (WFL - limited d/t precautions) Elbow AROM: WFL Wrist AROM: WFL Right Hand AROM: WFL Left Hand AROM: WFL Strength: Ui Application Developer Position 2 Sensation: Denies tingling or numbness Dexterity/Coordination: Fine Motor Hand Strength R Ui Application Developer Position 2 (lbs): 15 lbs (10# second attempt w/ PT dynamometer) L Ui Application Developer Position 2 (lbs): 5 lbs UE AROM Right Hand AROM: WFL Left Hand AROM: WFL Current Activities Of Daily Living Current Activities Of Daily Living: Bathing Upper Body, Bathing Lower Body, Dressing Upper Body, Dressing Lower Body, Toileting Bathing Upper Body: Modified Independent Bathing Lower Body: Modified Independent Dressing Upper Body: Modified Independent Dressing Lower Body : Modified Independent Toileting: Modified Independent Instrumental Activities of Daily Living Difficulty noted with: Meal/Beverage Prep, Cooking, Cleaning, Laundry Meal/Beverage Prep: Modified Independent Cooking: Modified Independent Cleaning: Modified Independent Laundry: Modified Independent Education: Education Learning Preferences: Demonstration, Explanation, Printed Materials Barriers: None Learning/educational needs: Home exercise program, Lifestyle changes, Procedure / Surgery Education Provided: Yes, see treatment interventions for education provided Education Provided To: Patient Education Mode/Type: Demonstration, Literature/Printed Materials, Explanation/Discussion, Performance Response to Education/Teach Back: States/Identifies, Return Demonstration, Requires Review/Additional Education TREATMENT: OT Treatment Interventions : Therapeutic Exercise Evaluation Evaluation Therapeutic Exercise: 1: Review of AROM within precautions for shoulder flexion, abduction, ER ; against gravity 10-15 reps d/t increased symptoms 2: Review of HEP for mohan theraputty exercises for instrumentation fitter and pinch strength: Skilled Intervention: Patient was educated in proper exercise technique and purpose for exercises. Skilled judgment was provided in selection of appropriate interventions. Correct performance of therapeutic exercises was facilitated with verbal cuing. Billing * Evaluation Low Complexity: 1 Unit Therapeutic Exercise Treatment Minutes: 10 Total Treatment Time Minutes (timed/untimed): 35 MANAS Del Valle documented in this encounter [facility] 08-01-2022 History of Present illness Narrative Episode Visit Count: 1 Therapist That Will Accept/Oversee The Plan Of Care: Ra Andrade Start of Care Date: 08/01/22 Onset Date: 08/01/20 (~ 2 years ago) Patient Identified by Name and Date of : Yes Rehab Precautions: Spine Precaution/Activity Restriction Comments: brace with sleeping and work tasks ; no BLT; no lifting >10#; Current Surgical Procedure : ACDF C3-[address] ([address] Dutta at [facility]) Current Surgical Procedure Date: 06/07/22 Mechanism of Injury: Insidious Onset REHABILITATION AND SPORTS THERAPY PHYSICAL THERAPY EVALUATION PLAN OF CARE: Assessment: Tierra Mcgovern presents 6 weeks s/p cervical fusion with chief complaint and post-op deficits of pain & paresthesias (hands), weakness and fatigue that interferes with walking in the community, stair negotiation, heavy exertion, lifting, physical activities, recreational activities, working, sleeping, dressing, gripping . She presents with impairments in ADL's, balance, flexibility, gait, independence in exercise, overall function, range of motion, sensation, strength, and symptom management. PROMIS (Patient-Reported Outcomes Measurement Information System) scores were reviewed and physical function domain and self efficacy domain identified as a rehabilitation concern. Prognosis for therapy is Good due to: good overall health status Fair due to: clinical presentation, chronic nature of impairments, limited tolerance to activity . She will benefit from skilled therapy services to meet the goals established for this plan of care as noted below. Pt presents with significant weakness & fatigue. She would benefit from post-op f/u with PCP which I discussed & recommended (she currently doesn't have one) and possible referral to trout farmer. She may also benefit from neurology consult pending progress in therapy with strength gains (pt referred to PT & OT). Goals for Episode of Care: created on 08/01/22 through 10/30/22 [place] in home exercise program. Patient will demonstrate increase in UE & LE strength to 4+/5 during manual muscle testing in order to improve function for basic self-care tasks, home management tasks, prior functional tasks, and work tasks. Normal gait. Reciprocal stair negotiation. Patient will increase balance to 20 seconds for single limb stance on RLE and LLE, also improve dynamic balance with tandem stance/walk. Patient will decrease pain rating by 2 points to meet minimal clinical important difference for numeric pain rating scale. Restore pain free cervical ROM to wfl to allow for improved ADLs. Patient will increase flexibility of B LE (HS) to WNL to improve ability to maintain proper posture, improve mechanics, and decrease pain. Patient Goals: move better with less pain, better strength, less numbness Planned Interventions, Frequency, and Duration: Current Frequency: 2x/week Duration: 12 weeks Total Number of Visits Planned: 20 Planned Treatment Interventions: Therapeutic exercise (57403), Neuromuscular re-education (36962), Manual therapy (52470), Therapeutic activities (93539), Self-fpc management (42650), Gait Training (30723), Patient/Family/Caregiver Education, Body Mechanics Training, Functional training, General Conditioning PLAN FOR NEXT VISIT: address UE/LE strength, endurance, gait & balance Patient demonstrates good understanding of plan of care and treatment. The above goals and plan of care were discussed and agreed upon by patient/family. SUBJECTIVE: Tierra Mcgovern is a 46 year old female seen today for PT eval for post-op rehab s/p neck fusion surgery. pt limited by neck & shoulder pain, B UE/hand numbness, general weakness & deconditioning, reports frequent fatigue & exhaustion. initially wore a soft collar 28/08 after surgery now just wears for work & sleep. pt also reports LBP & intermittent sciatica from a slipped disc, says she may need surgery for that also Patient Goals: move better with less pain, better strength, less numbness Functional Limitations: walking in the community, stair negotiation, heavy exertion, lifting, physical activities, recreational activities, working, sleeping, dressing, gripping Prior Level of Function: Independent without limitations Relevant History Past Relevant Medical Conditions: Anxiety, Depression, Hepatitis/Liver Disease Past Relevant Surgical Conditions: Spine fusion - Cervical Spine Fusion - Cervical Comments: previous neck fusion at [facility] Right or Left Handed: Right 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, 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 Home Environment Patient Lives With: Family Intake Information: Prescription present (pt has order at home, to bring next visit) Previous Treatment: Surgery , Pain meds , Muscle relaxer , Immobilizer/brace Spine History Symptoms Location at Onset: Neck, Hand Symptoms Since Onset: Improving, Worsening Sleep Affected by Pain: Pain keeps from falling asleep, Pain awakens Pain: Pain Pain Level: 6 Pain Location: Neck, Shoulder - Left, Shoulder - Right, Hand - Left, Hand - Right Description: Aching, Dull, Sharp, Numbness Frequency: Continuous, Intermittent (constant numbness, pain both constant & intermittent) Detailed Pain Score: Yes Worst Pain Level: 8 Average Pain Level: 7 Best Pain Level: 4 PROMIS Scales Higher is Better 07/31/2022 Phys Func - Score 27 (severe dysfunction) Phys Func - Percentile 1 % Self-Eff Symptom - Score 30 (Low) Self-Eff Symptom - Percentile 2 % T-scores: mean of general population = 50. 5 points is clinically meaningfully difference Percentiles provide an indication of how the patient's score ranks in relation to the general population. Higher percentile rankings indicate better function/quality of life. 50th percentile is the average of the general population and indicates half of respondents had a worse score. OBJECTIVE MEASURES WITH LEVEL OF FUNCTION: Posture / Alignment Posture: Forward head, Increased thoracic kyphosis, Rounded shoulders Spine Observations R Cervical Spine Palpation Tenderness: Upper trapezius, Levator scapulae L Cervical Spine Palpation Tenderness: Upper trapezius, Levator scapulae Sensation - Cervical Spine Cervical Spine Sensation: Impaired, Comments Cervical Spine Sensation - Comments: pt report B hand numbness Cervical Spine ROM Cervical ROM : Limitation AROM (limited by pain, stiffness/tightness & guarding) Cervical Flexion AROM: Moderate limitation, Increased pain Cervical Extension AROM: Moderate limitation, Increased pain Cervical Side-Bend Right AROM: Moderate limitation, Increased pain Cervical Side-Bend Left AROM: Moderate limitation Cervical Rotation Right AROM: Moderate limitation, End range pain Cervical Rotation Left AROM: Moderate limitation, End range pain UE AROM R UE AROM: R shoulder overhead motion limited by pain otherwise wnl L UE AROM: L shoulder overhead ROM limited by pain othewise wnl LE Flexibility Flexibility: Straight Leg Raise R SLR Flexibility: 60 degrees L SLR Flexibility: 60 degrees UE and Cervical Strength Strength Tested: Hand R UE Strength: grossly 3+/5 L UE Strength: grossly 3+/5 Hand Strength R Ui Application Developer Position 2 (lbs): 15 lbs (15# on 1st attempt, 10# on 2nd attempt) L Ui Application Developer Position 2 (lbs): 5 lbs LE Strength R LE Strength: grossly 3+/5 L LE Strength: grossly 3+/5 Functional Strength R Single Leg Heel Raise: 7 L Single Leg Heel Raise: 5 Gait Gait: Independent Gait Deviations: General Deviations General Deviations/Observations: Antalgic gait, Nupur decreased, Wide base of support Gait Observation: slow, cautious gait Balance Static Standing Balance: Single Leg Stance Single Leg Stance: 5-8 seconds R/L Dynamic Standing Balance: Tandem Walking (heel to toe), Toe Walk, Heel Walk Toe Walk: moderate/significant difficulty Heel Walk: moderate/significant difficulty Tandem Walking: unable Education: Education Learning/educational needs: Procedure / Surgery, Lifestyle changes, Health promotion, Safety, Home exercise program, Plan of Care, Posture, Body Mechanics, Gait Training Education Provided: Yes, see treatment interventions for education provided Education Provided To: Patient Education Mode/Type: Demonstration, Explanation/Discussion, Performance Response to Education/Teach Back: States/Identifies, Return Demonstration, Requires Review/Additional Education TREATMENT: PT Treatment Interventions: Therapeutic Exercise Evaluation Therapeutic Exercise: 1: *s/l hip ABd 5-10xR/L 2: *SLR 5-10xR/L 3: *HS stretch standing/long-sit R/L 4: discussed/demonstrated UE/LE strengthening exercises, discussed/recommended gradual progression on stationary/spin bike at home for endurance (pt has spin bike & asked if she can try it) 5: discussed/recommended pt get est with PCP & possible consult with rheumatology Skilled Intervention: Patient was educated in proper exercise technique and purpose for exercises. Reviewed and educated patient on additions/changes for home exercise program as above (*). Skilled judgment was provided in selection of appropriate interventions. Correct performance of therapeutic exercises was facilitated with verbal, visual, and tactile cuing. Educated patient on rationale for performing exercises in regards to decreasing fatigue , improving fitness, including balance, increase ease of ADL, and ROM and function. Patient education as noted. Billing * Evaluation Moderate Complexity: 1 Unit Therapeutic Exercise Treatment Minutes: 25 Total Treatment Time Minutes (timed/untimed): 50 Dia Andrade PT documented in this encounter [facility] 06-08-2022 History of Present illness Narrative [facility] E[facility] [address] [facility] [address] [facility] [address] Dept: [phone] Dept Loc: [phone] Assessment and Recommendations Tierra was seen today for new patient. Diagnoses and all orders for this visit: Cervical radiculitis (Primary) Spondylosis of cervical spine Flexible fiberoptic laryngoscopy performed today revealing normal vocal cord motion bilaterally. Would be feasible and safe to proceed with revision surgery on the opposite side without concern. Follow up with ENT as needed. Electronically signed by Vero Dickey D.O. 06/08/22 Subjective: Patient: Tierra Mcgovern is a 46 y.o. female HPI Tierra Mcgovern is a 46 y.o. yo female who presents to clinic today for surgical clearance. Is scheduled for ACDF tomorrow 06/09/ with Dr. Dutta of [facility]. Has a history of prior ACDF right anterior approach in 2007. Today denies any dysphonia or issues with her voice. Has some issues with swallowing where she feels like her food is getting stuck, however states this seems to be correlated with her neck issues as of now. Denies throat pain. No history of smoking, has smoked marijuana in the past. Is a social drinker. Review of Systems 14 point review of systems completed and all negative except as noted in HPI. Allergies Allergen Reactions Amoxicillin Other Other reaction(s): severe stiff neck neck pain and headache neck pain and headache Bupropion Other reaction(s): worse anxiety, worse anxiety Ciprofloxacin Hives and Swelling Venlafaxine Other reaction(s): worse anxiety, worse anxiety Cyclobenzaprine Other and Unknown Feels like bugs are crawling on her Feels like bugs are crawling on her Current Outpatient Medications Medication Sig Dispense Refill clonazePAM (KlonoPIN) 2 MG tablet Take 2 mg by mouth in the morning and 2 mg in the evening. oxyCODONE (Roxicodone) 5 MG immediate release tablet Take 1 Tablet by mouth every 12 hours as needed for Pain for up to 10 days. traZODone (Desyrel) 100 MG tablet Take 100 mg by mouth Nightly. No current facility-administered medications for this visit. No past medical history on file. No past surgical history on file. No family history on file. Social History Tobacco Use Smoking status: Never Smokeless tobacco: Never Substance Use Topics Alcohol use: Yes Comment: rare Objective: There were no vitals taken for this visit. Physical Exam General: Patient is not in acute distress. Appearance: Patient is well-developed. Eyes: Conjunctiva/sclera: Conjunctivae normal. Pupils: Pupils are equal, round, and reactive to light. HENT: Jaw: No trismus. Ears: Microscope brought in for exam. Bilateral external ears normal. Right EAC normal, TM clear with normal middle ear landmarks. Left EAC normal, TM clear with normal middle ear landmarks Nose: No nasal deformity, mucosal edema or rhinorrhea. Mouth: Mucous membranes are not pale, not dry and not cyanotic. No oral lesions. Pharynx: Uvula midline. No oropharyngeal exudate or uvula swelling. Tonsils: No tonsillar exudate. No abnormal masses or lesions Neck: No lymphadenopathy Thyroid: No significant thyromegaly. Trachea: Trachea and phonation normal. No tracheal deviation. Pulmonary: Effort: Pulmonary effort is normal. No respiratory distress. Breath sounds: No stridor. Musculoskeletal: Head: Normocephalic and atraumatic. Neck: Full passive range of motion without pain, neck supple. Skin: General: Skin is warm and dry. Findings: No erythema or rash. Neurological: Cranial Nerves: No cranial nerve deficit. Sensory: No sensory deficit. Coordination: Coordination normal. Extremities: No significant peripheral edema or varicosities Psychiatric: Mood and Affect: Mood and affect normal. Cognition and Memory: Cognition and memory normal. Procedure: Flexible fiberoptic laryngoscopy Indications: surgical clearance Mirror examination was attempted for visualization of the hypopharynx and vocal cords, this was unsuccessful secondary to patient's gag reflex therefore flexible laryngoscopy was obtained Anesthesia: None Consent: Indications, risks, benefits and alternatives were discussed with the patient. The patient was given an opportunity to ask questions and after they were answered he verbally consented to the procedure. Description: The fiberoptic scope was advanced down the patients right nare to the nasopharynx. There were no signs of pus, polyps, or synechia. The nasopharynx was clear or any masses or lesions. The scope was then flexed and advanced downwards to the vocal folds. The cords were inspected and work properly; no lesions, masses, paresis or paralysis noted. The patient's piriform spaces, vallecula, epiglottis, aryepiglottic folds and base of tongue were inspected and found to be normal without masses, lesions or ulcerations. The scope was removed and the patient tolerated the procedure well. No complications noted. Binh documented in this encounter [facility] 05-31-2022 Telephone encounter Note Patient lvm Wants to cancel surgery and auth for surgery She is going to go with a [facility] 05-31-2022 Miscellaneous Notes Patient lvm Wants to cancel surgery and auth for surgery She is going to go with a [facility] Surgery pending, auth #[id number] ----- Message from Wily Elizabeth MD sent at 05/30/2022 10:17 AM EDT ----- Anterior cervical 3-7 decompression, fusion, plating 2 hours 2 nights [id number] x [phone] [id number] documented in this encounter [facility] 05-31-2022 Telephone encounter Note Surgery pending, auth #[id number] [facility] 05-31-2022 Telephone encounter Note ----- Message from Wily Elizabeth MD sent at 05/30/2022 10:17 AM EDT ----- Anterior cervical 3-7 decompression, fusion, plating 2 hours 2 nights [id number] x [phone] [id number] [facility] 05-30-2022 History of Present illness Narrative NEUROSURGERY CONSULT NOTE Patient Name: Tierra Mcgovern Patient : 1975 PCP: No primary care provider on file. History of Present Ilness: 46 y.o. presents with neck pain and arm pain for the last 2 years. States the pain radiates down her arms. She has constant numbness in her hands. States her left hand is worse, but she is right hand dominant. States she has weakness and clumsy hands. She drops items. States her gait is unsteady. She has headaches. She has some episodes of urinary incontinence. She has pain in her low back. States she has a slipped disc in her low back. She ambulates with a limp. She had previous neck surgery in 2007. Chief Complaint Patient presents with New Patient 2nd opinion on neck issue Past Medical History: No past medical history on file. Past Surgical History: No past surgical history on file. Home Medications: Prior to Admission medications Medication Sig Start Date End Date Taking? Authorizing Provider clonazePAM (KlonoPIN) 2 MG tablet Take 2 mg by mouth in the morning and 2 mg in the evening. 04/01/22 Yes Historical Provider, ibuprofen 800 MG tablet Take 800 mg by mouth 3 times daily. 03/20/22 Yes Historical Provider, traZODone (Desyrel) 100 MG tablet Take 100 mg by mouth Nightly. 05/05/22 Yes Historical Provider, amphetamine-dextroamphetamine (Adderall) 20 MG tablet 05/15/22 Historical Provider, meloxicam (Mobic) 15 MG tablet Take 15 mg by mouth in the morning. 04/07/22 Historical Provider, oxyCODONE (Roxicodone) 5 MG immediate release tablet Take 1 Tablet by mouth every 12 hours as needed for Pain for up to 10 days. 05/05/22 Historical Provider, predniSONE (Deltasone) 20 MG tablet Take 40 mg by mouth. 09/05/21 Historical Provider, sulfamethoxazole-trimethoprim (Bactrim DS) 800-160 MG tablet Take by mouth. 09/05/21 Historical Provider, tiZANidine (Zanaflex) 6 MG capsule TAKE 1 CAPSULE BY MOUTH THREE TIMES DAILY NEEDED for FOR MUSCLE SPASMS. 05/04/22 Historical Provider, topiramate 50 MG tablet Take 1 tablet by mouth daily. 04/07/22 Historical Provider, Allergies: Amoxicillin, Bupropion, Ciprofloxacin, Venlafaxine, and Cyclobenzaprine Social History: TOBACCO: reports that she has never smoked. She has never used smokeless tobacco. ETOH: reports current alcohol use. RECREATIONAL DRUG USE: Social History Substance and Sexual Activity Drug Use Not Currently Family History: No family history on file. Review of Systems Constitutional: Negative for chills and fever. HENT: Negative for congestion, rhinorrhea and sore throat. Eyes: Negative for photophobia and visual disturbance. Respiratory: Negative for cough and shortness of breath. Cardiovascular: Negative for chest pain and palpitations. Gastrointestinal: Negative for abdominal pain, nausea and vomiting. Genitourinary: Negative for decreased urine volume and difficulty urinating. Musculoskeletal: Positive for back pain, gait problem and neck pain. Skin: Negative for rash and wound. Neurological: Positive for weakness, numbness and headaches. Negative for dizziness, seizures and speech difficulty. Psychiatric/Behavioral: Negative for behavioral problems and confusion. Physical Examination: Vitals: 05/30/22 0904 BP: 111/80 Pulse: 105 Physical Exam Vitals reviewed. Constitutional: Appearance: Normal appearance. HENT: Head: Normocephalic and atraumatic. Nose: Nose normal. Mouth/Throat: Pharynx: Oropharynx is clear. Eyes: Extraocular Movements: Extraocular movements intact. Conjunctiva/sclera: Conjunctivae normal. Cardiovascular: Rate and Rhythm: Normal rate and regular rhythm. Pulses: Normal pulses. Pulmonary: Effort: Pulmonary effort is normal. No respiratory distress. Abdominal: General: There is no distension. Palpations: Abdomen is soft. Tenderness: There is no abdominal tenderness. Musculoskeletal: General: No tenderness. Normal range of motion. Cervical back: Normal range of motion and neck supple. No rigidity. Skin: General: Skin is warm and dry. Neurological: Mental Status: She is alert and oriented to person, place, and time. Cranial Nerves: No cranial nerve deficit. Sensory: Sensory deficit present. Motor: Weakness present. Coordination: Coordination abnormal. Gait: Gait abnormal. Deep Tendon Reflexes: Reflexes abnormal. Comments: DTRs 4/4 in BUE Strength 3 to 4-/5 in bilateral hand intrinsics, 4-/5 in bilateral triceps Diminished fine motor coordination in hands bilaterally Difficulty with walking on toes and heels Gait unsteady Diminished ROM in cervical spine Psychiatric: Mood and Affect: Mood normal. Behavior: Behavior normal. Neurologic Exam Mental Status Oriented to person, place, and time. Gait unsteady Results Labs: Last 24hrs No results found for this or any previous visit (from the past 24 hour(s)). Radiology Personal review: MRI of the cervical spine demonstrates disc herniation spondylitic change and resultant varying degrees of stenosis ranging from very severe at C3-4 with significant cord compression to moderate at other levels ASSESSMENT / PLAN : 46yo f with symptomatic pathology referable to her cervical spine. Her imaging was reviewed with her, and she is symptomatic to the above noted pathology. She has clinical signs and symptoms of cervical myelopathy as well as radiculopathy both surgical and conservative treatment options were discussed with her. With respect to surgery, the risks, benefits, and alternatives to a C3-C7 anterior cervical decompression fusion and plating procedure were discussed and understood by the patient. The rehabilitation process and prognosis were discussed as well and all her questions were answered. She would have to stop all NSAIDs 7 days pre op and 3 months post op. This should be done as soon as possible. She understands without surgical intervention, she is at significant risk for neurologic decline, and she may already have permanent neurologic damage with myelopathy. Diagnosis Plan 1. 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 Tierra Mcgovern is a very pleasant 46 year old female here for first time evaluation of back and neck. Referred by Dr. Gallegos, had a previous ACDF by Dr. Simth in 2007 and she recovered okay, but has progressively worsening balance, hand tingling, and walks leaning forward. ROS: Reviewed and is negative except as noted above. Past Histories: Reviewed and is noncontributory except as noted above. Past Medical History: Past Medical History: Diagnosis Date Calculus of kidney Cervical spondylosis with myelopathy 07/09/2007 Past Surgical History: Review of patient's past surgical history indicates: LITHOTRIPSY, EXTRACORPOREAL SHOCK WAVE (2002) x3 ORIF LEFT Foot (11/2005) LEFT Social History: Social History Socioeconomic History Marital status: Single Tobacco Use Smoking status: Never Smokeless tobacco: Never Substance and Sexual Activity Alcohol use: Yes Comment: rarely Drug use: No Social Determinants of Health Financial Resource Strain: Unknown Difficulty of Paying Living Expenses: Patient refused Food Insecurity: Unknown Ran Out of Food in the Last Year: Patient refused Transportation Needs: Unknown Lack of Transportation (Medical): Patient refused Lack of Transportation (Non-Medical): Patient refused Physical Activity: Unknown Days of Exercise per Week: Patient refused Minutes of Exercise per Session: Patient refused Stress: Unknown Feeling of Stress : Patient refused Social Connections: Unknown Frequency of Communication with Friends and Family: Patient refused Frequency of Social Gatherings with Friends and Family: Patient refused Attends Anglican Services: Patient refused Active Member of Clubs or Organizations: Patient refused Attends Club or Organization Meetings: Patient refused Marital Status: Patient refused Intimate Partner Violence: Unknown Fear of Current or Ex-Partner: Patient refused Emotionally Abused: Patient refused Physically Abused: Patient refused Sexually Abused: Patient refused Family History: No family history on file. Medications: reviewed Allergies: Cipro [ciprofloxacin hydrochloride], Amoxicillin, and Cyclobenzaprine --------- OBJECTIVE Physical Exam: Constitutional: Awake & alert. No distress. Head: Atraumatic. Neck: Supple. No cervical midline bony tenderness, deformities, or step-offs. Cardiovascular: Equal pulses. Well perfused. Pulmonary/Chest: No respiratory distress. Abdominal: Non-distended. Musculoskeletal: No peripheral edema. Back: No midline bony tenderness, deformities, or step-offs of the thoracic, lumbar, and sacral spine. Skin: Normal color. No abrasions or bruising. No erythema, induration or fluctuance. Neurological: Alert, awake, and appropriate. 5/5 strength bilateral upper and lower extremities, except 4/5 strength to b/l instrumentation fitter strength and finger abduction. No sensory deficits to light touch. +L'hermitte's; + Terrazas's bilaterally. Imaging reviewed: MR C-spine from 04/24 and XR L-spine from 04/07 shows horrible L4/5 Grade II slip with severe facet hypertrophy; congenital stenosis with space available for cord of 4 mm at C3/4, multiple disc protrusion --- ASSESSMENT & PLAN ----- Cervical myelopathy Discussed imaging findings and possible neck surgery, would have flip laminoplasty hybrid after CT scan, and an L4/5, L5/S1 instrumented fusion of lower back if that did not resolve low back issues. Understands the risks and benefits of surgery and would like to proceed. Will set up for surgery. Patient to return sooner if worsening or if there are any changes. Ordered: CT C-spine w/o contrast Dr. Kenya Thorne. documented in this encounter [facility] 05-05-2022 History of Present illness Narrative Office Note First Office Visit: None Today' Date: 05/05/2022 Last Office Visit: None Chief complaint: HPI: Pt is a pleasent 46 female , who presents for follow up evaluation. Pain worse , left radiculopathy weakness getting worse , balance worse , leg numbness Topamax make change mental status Still use marijuana , twice a week Tizanidine make her dizzy C MRI C3-C4: Left central disc extrusion with inferior migration. There is moderate cord deformity. No cord signal abnormality. Severe left and moderate right foraminal stenoses secondary to uncovertebral hypertrophy and facets arthrosis. C4-C5: Mild anterolisthesis of C4 on C5 secondary to facet arthrosis. Mild anterior cord deformity. No cord signal abnormality. Severe bilateral foraminal stenoses. C5-C6: Central disc protrusion with moderate to severe encroachment anterior CSF space. Cord atrophy and area of subtle signal abnormality in the left side of the cord most likely secondary to myelomalacia. Severe bilateral foraminal stenoses. C6-C7: Central disc extrusion with severe encroachment anterior CSF space. Mild cord deformity. No cord signal abnormality. C7-T1: No significant stenosis. IMPRESSION: Multilevel spondylosis with multifocal areas of cord deformity. There is moderate cord deformity at C3-C4 secondary to a left central disc extrusion. No cord signal abnormality. Mild cord atrophy at C5-C6. Mild anterior cord deformity at C6-C7. C X ray . Increased moderate multilevel cervical spondylosis. No acute osseous abnormalities. 2. The previously seen intervertebral disc construct at C5-6 is no longer visualized and may have been removed or crushed. Correlation with prior surgical history and any available outside imaging is recommended. L X ray No acute fracture or dislocation. Grade 1 degenerative spondylolisthesis of L4 on L5. History status post anterior cervical diskectomy and fusion at C5-6 for severe cord compression Last vivist 2007 with NSG .Pt complains of occasional neck pain better than before , back of lower neck to shoulders , hand numbness , drop things , decrease sensation in both hands , burn her fingers yesterday over last 8 months decrease fine movements , drop things from hands , no clear radiculopathy , throbbing all over neck and arms Medical marijuana , motrin , Zanaflex , gabapentin make her irritable Injections , after surgery for low back Low back Right sharp deep with worse with bending forward , sitting for long time Imaging: none since 2007 Past Medical History: Diagnosis Date Calculus of kidney Cervical spondylosis with myelopathy 07/09/2007 Past Surgical History: Procedure Laterality Date LITHOTRIPSY, EXTRACORPOREAL SHOCK WAVE 2002 x3 ORIF LEFT Foot 11/2005 LEFT No family history on file. Social History Socioeconomic History Marital status: Single Tobacco Use Smoking status: Never Smokeless tobacco: Never Substance and Sexual Activity Alcohol use: Yes Comment: rarely Drug use: No Social Determinants of Health Financial Resource Strain: Unknown Difficulty of Paying Living Expenses: Patient refused Food Insecurity: Unknown Ran Out of Food in the Last Year: Patient refused Transportation Needs: Unknown Lack of Transportation (Medical): Patient refused Lack of Transportation (Non-Medical): Patient refused Physical Activity: Unknown Days of Exercise per Week: Patient refused Minutes of Exercise per Session: Patient refused Stress: Unknown Feeling of Stress : Patient refused Social Connections: Unknown Frequency of Communication with Friends and Family: Patient refused Frequency of Social Gatherings with Friends and Family: Patient refused Attends Anglican Services: Patient refused Active Member of Clubs or Organizations: Patient refused Attends Club or Organization Meetings: Patient refused Marital Status: Patient refused Intimate Partner Violence: Unknown Fear of Current or Ex-Partner: Patient refused Emotionally Abused: Patient refused Physically Abused: Patient refused Sexually Abused: Patient refused Current Outpatient Medications: topiramate (Topamax) 50 MG tablet, Take 1 Tablet by mouth daily., Disp: 30 Tablet, Rfl: 0 meloxicam (Mobic) 15 MG tablet, Take 1 Tablet by mouth daily., Disp: 30 Tablet, Rfl: 3 clonazePAM (KlonoPIN) 2 MG tablet, Take 2 mg by mouth 2 times daily., Disp: , Rfl: ibuprofen (MOTRIN) 800 MG tablet, Take 1 Tablet by mouth every 8 hours as needed., Disp: , Rfl: trazodone (DESYREL) 100 MG tablet, Take 100 mg by mouth., Disp: , Rfl: tizanidine (ZANAFLEX) 6 MG capsule, TAKE 1 CAPSULE BY MOUTH THREE TIMES DAILY NEEDED for FOR MUSCLE SPASMS., Disp: , Rfl: amphet-dextroamphet (ADDERALL) 20 MG tablet, Take 20 mg by mouth 2 times daily., Disp: , Rfl: Allergies Allergen Reactions Cipro [Ciprofloxacin Hydrochloride] Hives Amoxicillin Other neck pain and headache Cyclobenzaprine Other Feels like bugs are crawling on her ROS: Positive for pain, weakness, numbness, balance Negative for Fever/ chills Changes in weight, energy No bleeding, changes in bruising No chest pain No changes in breathing No changes in mood No changes in vision No changes in appetite No changes in bowel No changes in bladder No changes is allergies PE: There were no vitals filed for this visit. General: Pleasant, no distress HEENT: NC/ AT. PERRLA CV: Radial pulses intact Pulm: No distress Ext: No edema Neuromusculoskeletal: Head: NC, AT. PERRLA. Mod occipital tenderness Neck: Limited Range of motions, extension, flexion, rotation. Pos Facet loading. Equivocal Spurling. Mod Tenderness. 5/5 Strength, increase tone , terrazas's positive bilateral , left positive Shoulder: normal Range of motion. Min Bicep groove tenderness. 5/5 Strength Thoracic: Min Tenderness, no step off Lumbar: Limited Range of motion. Facet loading. Min Tenderness. Neg SL Hip: normal Range of motion. Tenderness SI: right sever Tenderness. Level. Equivocal Patricks and Gaenslen Knee: intact Range of motion. No Tenderness. No Swelling. Min Crepitis Reflexes: normal Bicep. Brachiradialis. Knee. Ankles Strength: 5/5 globally except Sensory: Grossly intact Skin: No bruising, erythema Gait: Normal Impression: 46 S/P Cervical anterior fusion 2007 due to cord compression , with neck pain radiculopathy worsening over last year hyperreflexic on exam , MRI There is moderate cord deformity at C3-C4 secondary to a left central disc extrusion. No cord signal abnormality. Mild cord atrophy at C5-C6. Mild anterior cord deformity at C6-C7.Hyper reflexic on exam , myelopathic Plan: 1. Discussed options [facility] reviewed Need surgery consultation , I advice her for surgery gris NO PT or injection Mobic in the am Oxycodone PRN , high risk as she in on klonopin and trazodone , muscles relaxant and Adderall The impression and plan were discussed and explained in detail. All the questions were answered. Education was provided accordingly. Follow-up:post op James Gallegos MD documented in this encounter [facility] 04-07-2022 History of Present illness Narrative Office Note First Office Visit: None Today' Date: 04/06/2022 Last Office Visit: None Chief complaint: HPI: Pt is a pleasent 46 female , who presents for evaluation. status post anterior cervical diskectomy and fusion at C5-6 for severe cord compression Last vivist 2007 with NSG .Pt complains of occasional neck pain better than before , back of lower neck to shoulders , hand numbness , drop things , decrease sensation in both hands , burn her fingers yesterday over last 8 months decrease fine movements , drop things from hands , no clear radiculopathy , throbbing all over neck and arms Medical marijuana , motrin , Zanaflex , gabapentin make her irritable Injections , after surgery for low back Low back Right sharp deep with worse with bending forward , sitting for long time Imaging: none since 2007 Procedures: None Past Medical History: Diagnosis Date Calculus of kidney Cervical spondylosis with myelopathy 07/09/2007 Past Surgical History: Procedure Laterality Date LITHOTRIPSY, EXTRACORPOREAL SHOCK WAVE 2002 x3 ORIF LEFT Foot 11/2005 LEFT No family history on file. Social History Socioeconomic History Marital status: Single Tobacco Use Smoking status: Never Substance and Sexual Activity Alcohol use: Yes Comment: rarely Drug use: No No current outpatient medications on file. Allergies Allergen Reactions Cipro [Ciprofloxacin Hydrochloride] Hives ROS: Positive for pain, weakness, numbness, balance Negative for Fever/ chills Changes in weight, energy No bleeding, changes in bruising No chest pain No changes in breathing No changes in mood No changes in vision No changes in appetite No changes in bowel No changes in bladder No changes is allergies PE: There were no vitals filed for this visit. General: Pleasant, no distress HEENT: NC/ AT. PERRLA CV: Radial pulses intact Pulm: No distress Ext: No edema Neuromusculoskeletal: Head: NC, AT. PERRLA. Mod occipital tenderness Neck: Limited Range of motions, extension, flexion, rotation. Pos Facet loading. Equivocal Spurling. Mod Tenderness. 5/5 Strength, increase tone , terrazas's equivocal bilateral Shoulder: normal Range of motion. Min Bicep groove tenderness. 5/5 Strength Thoracic: Min Tenderness, no step off Lumbar: Limited Range of motion. Facet loading. Min Tenderness. Neg SL Hip: normal Range of motion. Tenderness SI: right sever Tenderness. Level. Equivocal Patricks and Gaenslen Knee: intact Range of motion. No Tenderness. No Swelling. Min Crepitis Reflexes: normal Bicep. Brachiradialis. Knee. Ankles Strength: 5/5 globally except Sensory: Grossly intact Skin: No bruising, erythema Gait: Normal Impression: 46 S/P Cervical anterior fusion 2007 due to cord compression , with neck pain radiculopathy worsening over last year hyperreflexic on exam , no imaging Low back axial and right SI pain Plan: 1. Discussed options [facility] reviewed PT for the low back Need Neck imaging gris , X ray and C MRI NO PT or injection for the neck until after imaging and anther exam Mobic in the am Topamax at night The impression and plan were discussed and explained in detail. All the questions were answered. Education was provided accordingly. The procedure was explained in detail, along with risks and potential side effects. The appropriate use of the medications, including storage, risks (including addiction) and potential sides effects were explained and discussed. Follow-up:4 w James Gallegos MD documented in this encounter [facility] 04-07-2022 History of Present illness Narrative Office Note First Office Visit: None Today' Date: 04/06/2022 Last Office Visit: None Chief complaint: HPI: Pt is a pleasent 46 female , who presents for evaluation. status post anterior cervical diskectomy and fusion at C5-6 for severe cord compression Last vivist 2007 with NSG .Pt complains of occasional neck pain better than before , back of lower neck to shoulders , hand numbness , drop things , decrease sensation in both hands , burn her fingers yesterday over last 8 months decrease fine movements , drop things from hands , no clear radiculopathy , throbbing all over neck and arms Medical marijuana , motrin , Zanaflex , gabapentin make her irritable Injections , after surgery for low back Low back Right sharp deep with worse with bending forward , sitting for long time Imaging: none since 2007 Procedures: None Past Medical History: Diagnosis Date Calculus of kidney Cervical spondylosis with myelopathy 07/09/2007 Past Surgical History: Procedure Laterality Date LITHOTRIPSY, EXTRACORPOREAL SHOCK WAVE 2002 x3 ORIF LEFT Foot 11/2005 LEFT No family history on file. Social History Socioeconomic History Marital status: Single Tobacco Use Smoking status: Never Substance and Sexual Activity Alcohol use: Yes Comment: rarely Drug use: No No current outpatient medications on file. Allergies Allergen Reactions Cipro [Ciprofloxacin Hydrochloride] Hives ROS: Positive for pain, weakness, numbness, balance Negative for Fever/ chills Changes in weight, energy No bleeding, changes in bruising No chest pain No changes in breathing No changes in mood No changes in vision No changes in appetite No changes in bowel No changes in bladder No changes is allergies PE: There were no vitals filed for this visit. General: Pleasant, no distress HEENT: NC/ AT. PERRLA CV: Radial pulses intact Pulm: No distress Ext: No edema Neuromusculoskeletal: Head: NC, AT. PERRLA. Mod occipital tenderness Neck: Limited Range of motions, extension, flexion, rotation. Pos Facet loading. Equivocal Spurling. Mod Tenderness. 5/5 Strength, increase tone , terrazas's equivocal bilateral Shoulder: normal Range of motion. Min Bicep groove tenderness. 5/5 Strength Thoracic: Min Tenderness, no step off Lumbar: Limited Range of motion. Facet loading. Min Tenderness. Neg SL Hip: normal Range of motion. Tenderness SI: right sever Tenderness. Level. Equivocal Patricks and Gaenslen Knee: intact Range of motion. No Tenderness. No Swelling. Min Crepitis Reflexes: normal Bicep. Brachiradialis. Knee. Ankles Strength: 5/5 globally except Sensory: Grossly intact Skin: No bruising, erythema Gait: Normal Impression: 46 S/P Cervical anterior fusion 2007 due to cord compression , with neck pain radiculopathy worsening over last year hyperreflexic on exam , no imaging Low back axial and right SI pain Plan: 1. Discussed options [facility] reviewed PT for the low back Need Neck imaging gris , X ray and C MRI NO PT or injection for the neck until after imaging and anther exam Mobic in the am Topamax at night The impression and plan were discussed and explained in detail. All the questions were answered. Education was provided accordingly. The procedure was explained in detail, along with risks and potential side effects. The appropriate use of the medications, including storage, risks (including addiction) and potential sides effects were explained and discussed. Follow-up:4 w James Gallegos MD documented in this encounter [facility] 12-29-2020 Note Patient Outreach (HOMER TNAV) ERA MCGOVERNTIERRA ([id number]) 1975 F Date Time Provider Department 12/29/20 MARY JANSEN During your visit today, we recorded the following information about you: Mary Jansen Population Health Navigator 12/29/2020 9:44 AM Signed POPULATION HEALTH NAVIGATION OUTREACH Action/FYI I left a voice message and a my chart message re: pcp No care everywhere Contact made with patient or family member? NO Pt identified by name and : NO Outreach Outcome/Action Unable to reach patient: Left message MyChart message sent Reason for Outreach Attribution: Provider Off-boarding Payer: Payor: ZOHREH / Plan: BLUE ACCESS PPO / Product Type: PPO / Care Gap Reviewed:: Reminder: Reminder note to check Health Maintenance for items below Health Maintenance items due: COVID-19 VACCINE(1) Never done HIV SCREENING Never done HPV TESTING due on 02/02/2018 PAP TESTING due on 08/03/2018 DEPRESSION SCREENING due on 06/06/2019 COLORECTAL CANCER SCREENING Never done INFLUENZA(1) due on 10/06/2020 MAMMOGRAM due on 03/04/2021 Advanced Directives Completed: Have you ever planned for future healthcare decisions with a power of senior trial attorney, living will, or advance directives? No. Please bring a copy to your next appointment or email to [email or web address] Referrals: N/A Message Sent to Practice: NO Navigation Signature: Mary Jansen Population Health Navigator December 29, 2020 9:43 AM Allergies As of Date: 12/29/2020 Noted Allergy Reaction AMOXICILLIN 08/06/2020 14 - Other: See Comments Comments: neck pain and headache CIPROFLOXACIN 02/18/2014 4 - Hives 7 - Swelling FLEXERIL (CYCLOBENZAPRINE) 11/10/2015 16 - Unknown Comments: Feels like bugs are crawling on her Date Reviewed: 08/06/2020 Reviewed by: Brandon Lawrence APRN.AUTOMATION TECHNICIAN - Fully Assessed Reason for Visit: Population Health Navigation Outreach [3910] Cmt: Offboarding Prescriptions as of 12/29/2020 - ibuprofen (MOTRIN) 800 mg tablet Take 1 tablet by mouth every 8 hours as needed. - tiZANidine (ZANAFLEX) 4 mg tablet Take 1 tablet by mouth once daily as needed. - traZODone (DESYREL) 100 mg tablet Take 1 tablet by mouth daily at bedtime. Take 1-2 tablets by mouth nightly - LO LOESTRIN FE 1 mg-10 mcg (24)/10 mcg (2) tab - MV,CA,MIN/IRON FUM/FA/VIT K (MULTI FOR HER ORAL) Take 1 tablet by mouth once daily. Problem List As Of Date 12/29/2020 Noted Resolved Insomnia [G47.00] Anxiety [F41.9] Insomnia [G47.00] 02/02/2014 Kidney stone [N20.0] 02/02/2014 Hepatitis C [B19.20] 02/18/2014 Depression [F32.A] Chronic low back pain [M54.50, G89.29] 04/10/2016 Severe anxiety with panic [F41.0] 06/05/2018 Moderate episode of recurrent major depressive *06/05/2018 Encounter Status:Closed by JUSTYNA POPULATION HEALTH NAVIGATOR, MARY Calvert on 12/29/20 [facility] 12-29-2020 Note HNO ID: [id number] Author: Mary Jansen Population Health Navigator Service: ? Author Type: ? Type: Progress Notes Filed: 12/29/2020 9:44 AM Note Text: POPULATION HEALTH NAVIGATION OUTREACH Action/FYI I left a voice message and a my chart message re: pcp No care everywhere Contact made with patient or family member? NO Pt identified by name and : NO Outreach Outcome/Action Unable to reach patient: Left message Acopiohart message sent Reason for Outreach Attribution: Provider Off-boarding Payer: Payor: ZOHREH / Plan: BLUE ACCESS PPO / Product Type: PPO / Care Gap Reviewed:: Reminder: Reminder note to check Health Maintenance for items below Health Maintenance items due: COVID-19 VACCINE(1) Never done HIV SCREENING Never done HPV TESTING due on 02/02/2018 PAP TESTING due on 08/03/2018 DEPRESSION SCREENING due on 06/06/2019 COLORECTAL CANCER SCREENING Never done INFLUENZA(1) due on 10/06/2020 MAMMOGRAM due on 03/04/2021 Advanced Directives Completed: Have you ever planned for future healthcare decisions with a power of senior trial attorney, living will, or advance directives? No. Please bring a copy to your next appointment or email to [email or web address] Referrals: N/A Message Sent to Practice: NO Navigation Signature: Mary Jansen Population Health Navigator December 29, 2020 9:43 AM [facility] 08-06-2020 Note HNO ID: [id number] Author: Brandon Lawrence APRN.CNP Service: ? Author Type: Nurse Practitioner Type: Progress Notes Filed: 08/06/2020 1:27 PM Note Text: Visit Date: August 06, 2020 Patient Name: Ms.Dawn Deepa Mcgovern Date of : 1975 MRN/E #: [id number] Chief Complaint Patient presents with: Urinary Frequency: burning with urination x 1 week, took a few amoxicillin History of present illness Tierra Mcgovern is a 44 year old female. Presents with complaints of urinary frequency, urgency, hematuria, and suprapubic discomfort that started 1 week ago. Denies having dysuria, abdominal pain, flank pain, fever, chills, or abnormal vaginal discharge. She attempted taking 2 days of amoxicillin because she could not make it to the [facility] and had no relief in symptoms. PAIN EVALUATION 08/06/2020 1211 Pain Level: 3 Pain Location: Pelvis Description: Pressure Duration Amount of Time: 1 Duration Units: Weeks Frequency: Intermittent Intervention: Medication ALLERGIES Allergen Reactions - Amoxicillin Other: See Comments neck pain and headache - Ciprofloxacin Hives, Swelling - Flexeril [Cyclobenz* Unknown Feels like bugs are crawling on her PAST MEDICAL HISTORY Diagnosis Date - Anemia - Anxiety - Arthritis - Depression - Hepatitis C - Insomnia - Kidney stone - Migraines PAST SURGICAL HISTORY Procedure Laterality Date - F LITHOTRIPSY 2002 - FOOT SURGERY HX 2008 s/p fracture - LAMINECTOMY,CERVICAL 2007 Social History Tobacco Use - Smoking status: Former Smoker Packs/day: 0.50 Years: 3.00 Pack years: 1.50 Types: Cigarettes Quit date: 02/05/2011 Years since quittin.5 - Smokeless tobacco: Never Used - Tobacco comment: Only smoked like one cigarette a day Vaping Use - Vaping Use: Never used Substance Use Topics - Alcohol use: No - Drug use: No Types: Heroin, Amphetamines, Cocaine Comment: IV drug use recovered four years FAMILY HISTORY Problem Relation Age of Onset - Alcohol/Drug Father - other (a fib) Father - other (sleep apnea) Father - Diabetes Paternal Grandfather - other (Cirrhosis) Paternal Grandfather - Ischemic Heart Disease Maternal Grandmother - Breast Cancer Maternal Grandmother - Breast Cancer Maternal Aunt - Breast Cancer Mother 58 diagnosed 02/2016 - other (sleep apnea) Mother Review of Systems Constitutional: Negative for chills, fever and malaise/fatigue. HENT: Negative for congestion and sore throat. Respiratory: Negative for cough, shortness of breath and wheezing. Cardiovascular: Negative for chest pain and palpitations. Gastrointestinal: Positive for abdominal pain (suprapubic pain). Negative for diarrhea, nausea and vomiting. Genitourinary: Positive for frequency, hematuria and urgency. Negative for dysuria and flank pain. Musculoskeletal: Negative for myalgias. Skin: Negative for itching and rash. Neurological: Negative for dizziness, tingling and headaches. Physical Exam Vitals and nursing note reviewed. Constitutional: Appearance: Normal appearance. Eyes: Extraocular Movements: Extraocular movements intact. Pupils: Pupils are equal, round, and reactive to light. Cardiovascular: Rate and Rhythm: Normal rate and regular rhythm. Pulses: Normal pulses. Heart sounds: Normal heart sounds. Pulmonary: Effort: Pulmonary effort is normal. No respiratory distress. Breath sounds: Normal breath sounds. No wheezing. Skin: General: Skin is warm and dry. Neurological: Mental Status: She is alert and oriented to person, place, and time. BP 110/60 Pulse 96 Temp 98.8 Resp 16 Wt 167 lb (75.8kg) SpO2 98% LMP 04/26/2020 Assessment/Plan (N30.01) Acute cystitis with hematuria (primary encounter diagnosis) -nitrofurantoin monohydrate and macrocrystal (MACROBID) 100 mg capsule -UA DIP -URINE (POC) -URINE CULTURE, -UA positive for radha esterase and hematuria -Send urine for culture -begin treatment with Macrobid 100 mg BID for 5 days -Patient education for prevention given Brandon Lawrence APRN.ROMERO Discussed above plan with patient. Pt agreeable with above plan. [facility] Diagnosis Cervical radiculitis- Primary Brachial neuritis or radiculitis nos Sacroiliac joint disease Disorders of sacrum Body mass index (BMI) 39.0-39.9, adult Cervical radiculitis Brachial neuritis or radiculitis nos Sacroiliac joint disease Disorders of sacrum [facility] Diagnosis Cervical radiculitis- Primary Brachial neuritis or radiculitis nos Spinal stenosis in cervical region [facility] Diagnosis Cervical radiculitis Brachial neuritis or radiculitis nos [facility]* Diagnosis Cervical radiculitis- Primary Brachial neuritis or radiculitis nos Cervical spondylosis with myelopathy Cervical myelopathy (HCC) Cervical spondylosis with myelopathy [facility] Diagnosis Cervical spondylosis with myelopathy- Primary Cervical radiculitis Brachial neuritis or radiculitis nos Cervical myelopathy (HCC) Cervical spondylosis with myelopathy Cervical spondylosis with myelopathy Cervical radiculitis Brachial neuritis or radiculitis nos Cervical myelopathy (HCC) Cervical spondylosis with myelopathy [facility] Diagnosis Cervical myelopathy (HCC)- Primary Cervical spondylosis with myelopathy [facility] Diagnosis Cervical radiculitis- Primary Brachial neuritis or radiculitis nos Spondylosis of cervical [facility] Posture abnormality- Primary Abnormal posture [facility] S/P cervical spinal fusion- Primary Arthrodesis status Neck pain Cervicalgia Weakness Other malaise and fatigue Impaired functional mobility, balance, gait, and endurance [facility] Diagnosis Cervical vertebral fusion- Primary Other unspecified back disorder Weakness of both hands Bilateral hand numbness Disturbance of skin sensation [facility] Diagnosis S/P cervical spinal fusion- Primary Arthrodesis status Weakness Other malaise and fatigue Impaired functional mobility, balance, gait, and endurance [facility] Diagnosis Cervical vertebral fusion- Primary Other unspecified back disorder Weakness of both hands Bilateral hand numbness Disturbance of skin sensation [facility] Instruction Text Take antibiotics as directed .You may take Tylenol or Motrin as needed for pain/fever.You can use OTC throat lozenges or throat spray to help with pain. [facility] Summary Purpose Family History No Family History Records FoundNo Family History Records FoundNo Family History Records FoundNo Family History Records FoundNo Family History Records FoundNo Family History Records Found Advance Directives No Advanced Directives Records FoundNo Advanced Directives Records FoundNo Advanced Directives Records FoundNo Advanced Directives Records FoundNo Advanced Directives Records FoundNo Advanced Directives Records Found Reason for Referral Specialty Diagnoses / Procedures Referred By Homero becerra Referred To Contact Physical Therapy Diagnoses Sacroiliac joint disease James Gallegos MD [address] [place] [address] [address] [place] [id number] Physical Therapy [facility] [place] [id number] Referral ID Status Reason Start Date Expiration Date Visits Requested Visits Authorized [id number] Pending [facility] 04/07/2022 04/08/2023 10 10 Scheduling Instructions SCHEDULING INSTRUCTIONS: Call [phone] to schedule your Physical Therapy appointment. We offer therapy services at many convenient locations. Please arrive 20 minutes prior to your appointment to register. It is important to bring your insurance cards and a personal identification card to your appointment. If you are unable to keep your appointment, cancel or reschedule by calling [phone] or via [email or web address]. Thank you! Question Answer Is this for a new patient or continuation of treatment? (New = hasn't been seen for referring dx/problem for outpatient therapy in the last 3 mo.) New Patient What is the main reason for visit? Non-Urgent/Chronic Is the reason for this visit Workers' Comp related? No What is the reason for visit? Musculoskeletal/Pain Reason for Ortho Visit Musculoskeletal-General Precautions? none Specialty Diagnoses / Procedures Referred By Homero becerra Referred To Contact Radiology Diagnoses Sacroiliac joint disease Procedures XR L-SPINE AP+LAT+OBL+CD James Gallegos MD [address] [place] [address] [address] [place] [id number] [facility] DIAGNOSTIC RADIOLOGY [address] [place] [address] [place] [address] Referral ID Status Reason Start Date Expiration Date Visits Re quested Visits Authorized [id number] Closed 04/07/2022 04/07/2023 1 1 Specialty Diagnoses / Procedures Referred By Contac t Referred To Contact Radiology Diagnoses Cervical radiculitis Procedures MR C-SPINE W/O James Gallegos MD [address] [place] [address] [place] [address] [facility] MRI [address] [place] [address] Referral ID Status Reason Start Date Expiration Date V isits Requested Visits Authorized [id number] Pending Review 04/07/2022 04/07/2023 1 1 Specialty Diagnoses / Procedures Referred By Contac t Referred To Contact Radiology Diagnoses Cervical radiculitis Procedures XR C-SPINE AP/LAT/OBLS/ODO James Gallegos MD [address] [place] [address] [place] [address] [facility] DIAGNOSTIC RADIOLOGY [address] [place] [address] [place] [address] Referral ID Status Reason Start Date Expiration Date Visits Re quested Visits Authorized [id number] Closed 04/07/2022 04/07/2023 1 1 Specialty Diagnoses / Procedures Referred By Contac t Referred To Contact Diagnoses Cervical radiculitis Spinal stenosis in cervical region James Gallegos MD [address] [place] [address] [place] [address] Referral ID Status Reason Start Date Expiration Date Visits Requested Visits Authorized [id number] Authorized Consultatio n-[facility] 04/24/2022 04/25/2023 1 1 Scheduling Instructions You have been referred to the [facility]. You will be contacted to schedule your appointment within 24 - 48 hours. If you are not contacted within this time frame please call the [facility] at [phone] to schedule your appointment. Question Answer Reason for Referral: Neck Pain [26] Comments Surgical options Referral ID Status Reason Start Date Expiration Date V isits Requested Visits Authorized [id number] Denied Transfer of Care-[facility] 04/07/2022 04/07/2023 1 1 Specialty Diagnoses / Procedures Referred By Contac t Referred To Contact Radiology Diagnoses Cervical spondylosis with myelopathy Cervical radiculitis Cervical myelopathy (HCC) Procedures CT C-SPINE W/O CONTRAST Kenya Thorne MD [address] [place] [address] [facility] CT SCAN Referral ID Status Reason Start Date Expiration Date Visits Requested Visits Authorized [id number] Pending Review Transfer of Care-[facility] 05/12/2022 05/12/2023 1 1 Specialty Diagnoses / Procedures Referred By Contac t Referred To Contact [facility] Diagnoses Cervical vertebral fusion Weakness of both hands Bilateral hand numbness Procedures OT REHAB FOLLOW UP ORDER THERAPEUT ACTVITY DIRECT PT CONTACT EACH 15 [address] [place] [address] [place] [address] [facility] [place] [address] [place] [address] Referral ID Status Reason Start Date Expiration Date Visits Requested Visits Authorized [id number] Pending Review PCP Requested Referral Auto-Generate d Referral 08/01/2022 10/30/2022 1 1 Additional Source Comments INFORMATION SOURCE (unrecogn ized section and content) DATE CREATED AUTHOR AUTHOR'S ORGANIZ ATION 03/26/2021 [facility] DATE CREATED AUTHOR AUTHOR'S ORGANIZ ATION 05/20/2022 [facility] DATE CREATED AUTHOR AUTHOR'S ORGANIZ ATION 05/27/[address] [facility] DATE CREATED AUTHOR AUTHOR'S ORGANIZ ATION 06/12/2022 [facility] DATE CREATED AUTHOR AUTHOR'S ORGANIZ ATION 11/15/2022 [facility] Reason for Visit (unrecogniz ed section and content) Specialty Diagnoses / Procedures Referred By Contac t Referred To Contact Physical Therapy / PHYSICAL THERAPY Diagnoses Cervial Fusion Procedures NEW RS PT ORTH K Epifanio Dutta [address] [place] [address] Kyleigh Keith, PT [address] [place] [address] Referral ID Status Reason Start Date Expiration Date V isits Requested Visits Authorized [id number] Authorized 07/19/2022 02/04/2023 1 40 Reason Comments PT Eval Reason Comments New patient, to establish relationship N edwar, Back & Hand's Specialty Diagnoses / Procedures Referred By Contac t Referred To Contact Radiology Diagnoses Cervical radiculitis Procedures MR C-SPINE W/O James Gallegos MD [address] [place] [phone] [facility] MRI [address] [facility] [place] [address] Referral ID Status Reason Start Date Expiration Date V isits Requested Visits Authorized [id number] Denied Transfer of Care-[facility] 04/07/2022 04/07/2023 1 1 Reason Comments Discuss results test/procedures Reason Comments New patient, to establish relationship Back symptoms/complaints Neck pain Shoulder symptoms Arm symptoms Specialty Diagnoses / Procedures Referred By Contac t Referred To Contact Diagnoses Cervical radiculitis Spinal stenosis in cervical region James Gallegos MD [address] [place] [address] Referral ID Status Reason Start Date Expiration Date V isits Requested Visits Authorized [id number] Closed Consultation -[facility] 04/24/2022 04/25/2023 1 1 Reason Comments New Patient 2nd opinion on neck issue Reason Comments New Patient Surgical clearance Specialty Diagnoses / Procedures Referred By Contac t Referred To Contact Otolaryngology Diagnoses pre op assessment for cervical surgery Procedures [facility]IC-Epifanio Stanford, [address] [place] [address] [facility] [address] [place] [address] Referral ID Status Reason Start Date Expiration Date V isits Requested Visits Authorized [id number] Pending Review 05/31/2022 05/31/2023 1 1 Reason Comments Opened In Error Reason Comments OT EVAL Specialty Diagnoses / Procedures Referred By Contac t Referred To Contact Occupational Therapy / OCCUPATIONAL THERAPY Diagnoses Cervical Fusion Lt Hand Procedures NEW RS OT ORTH MANJU Dutta, Scot D [address] [facility] [address] [place] [address] Valeri Ramírez, OTR/L [address] [place] [address] Referral ID Status Reason Start Date Expiration Date V isits Requested Visits Authorized [id number] Authorized 07/19/2022 02/04/2023 1 40 Reason Comments Occupational Therapy Specialty Diagnoses / Procedures Referred By Contac t Referred To Contact Occupational Therapy / OCCUPATIONAL THERAPY Diagnoses Cervical Fusion Lt Hand Procedures NEW RS OT ORTH MANJU Dutta, Scot D [address] [facility] [address] [place] [address] KojoenNigel loween, OTR/L [address] [place] [address] Care Teams (unrecognized sec tion and content) [employer] Relationship Specialty Start Date End Date James Gallegos MD [address] [place] [address] Physician Anesthesiology 04/08/22 [employer] Setter Relationship Specialty Start Date End Date James Gallegos MD [address] [place] [address] Physician Anesthesiology 04/08/22 [employer] Setter Relationship Specialty Start Date End Date James Galelgos MD [address] [place] [address] Physician Anesthesiology 04/08/22 [employer] Setter Relationship Specialty Start Date End Date James Gallegos MD [address] [place] [address] Physician Anesthesiology 04/08/22 Punch Press Setter Relationship Specialty Start Date End Date James Gallegos MD [address] [place] [address] Physician Anesthesiology 04/08/22 Punch Press Setter Relationship Specialty Start Date End Date James Gallegos MD [address] [place] [address] Physician Anesthesiology 04/08/22 [employer] Setter Relationship Specialty Start Date End Date William Hinds III, MD PCP - General Family Medicine 12/10/18 [employer]ter Relationship Specialty Start Date End Date William Hinds III, MD PCP - General Family Medicine 12/10/18 [employer]ter Relationship Specialty Start Date End Date William Hinds III, MD PCP - General Family Medicine 12/10/18 [employer]ter Relationship Specialty Start Date End Date William Hinds III, MD PCP - General Family Medicine 12/10/18 Source Comments (unrecognize d section and content) In the event this informatio n is protected by the Federal Confidentiality of Alcohol and Drug Abuse Patient Records regulations: The Federal rules restrict any use of the information to criminally investigate or prosecute any alcohol or drug abuse patient.[facility] the event this information is protected by the Federal Confidentiality of Alcohol and Drug Abuse Patient Records regulations: The Federal rules restrict any use of the information to criminally investigate or prosecute any alcohol or drug abuse patient.[facility] the event this information is protected by the Federal Confidentiality of Alcohol and Drug Abuse Patient Records regulations: The Federal rules restrict any use of the information to criminally investigate or prosecute any alcohol or drug abuse patient.[facility] the event this information is protected by the Federal Confidentiality of Alcohol and Drug Abuse Patient Records regulations: The Federal rules restrict any use of the information to criminally investigate or prosecute any alcohol or drug abuse patient.[facility] the event this information is protected by the Federal Confidentiality of Alcohol and Drug Abuse Patient Records regulations: The Federal rules restrict any use of the information to criminally investigate or prosecute any alcohol or drug abuse patient.[facility] FOR RECORDS PERTAINING TO PATIENTS WHO ARE OR HAVE BEEN ENROLLED IN A CHEMICAL DEPENDENCY/SUBSTANCEABUSE PROGRAM, SOME INFORMATION MAY BE OMITTED. This clinical summary was aggregated from multiple sources. Caution should be exercised in using it in the provision of clinical care. This summary normalizes information from multiple sources, and as a consequence, information in this document may materially change the coding, format and clinical context of patient data. In addition, data may be omitted in some cases. CLINICAL DECISIONS SHOULD BE BASED ON THE PRIMARY CLINICAL RECORDS. [employer] [facility]. provides no warranty or guarantee of the accuracy or completeness of information in this document.
== END | disposition home or self-care (01) ==
LOC: OPBI 13:09
PROVIDERS: PCP Obstetrics & Gynecology Gynecology; Referring Provider Obstetrics & Gynecology Gynecology; Visit Provider Obstetrics & Gynecology Gynecology
DX: Z12.31 Encounter for screening mammogram for malignant neoplasm of breast (principal)
CPT/HCPCS: 77063; 77067